=== PATIENT | female | born 1940 | race Two or more races ===

== ENCOUNTER 2016-04-25 09:54 | Inpatient (IN) | payer MEDICARE, MEDICAID ==
[2016-04-24 22:25] VITALS: BP 154/86
[~2016-04-25] VITALS: Ht 154.9 cm; Wt 64.0 kg
[2016-04-25] VITALS (8 sets, daily range): BP systolic 127–166; BP diastolic 50–92
[2016-04-25] MEDS ORDERED: METHAZOLAMIDE50 MG ORAL (10:19)
[2016-04-25] MEDS ORDERED: Morphine Sulfate 4mg/ml Inj IVP ONE (11:00)
[2016-04-25 11:32] LABS: BASOPHILS % (AUTO) 1.1 % (0.0-2.0); EOSINOPHILS % (AUTO) 3.1 % (0.0-3.0); LYMPHOCYTES % (AUTO) 18.6 % (20.0-45.0); MEAN CORPUSCULAR HEMOGLOBIN 25.3 PG (27.0-31.0); MEAN CORPUSCULAR HGB CONC 30.9 G/DL (32.0-36.0); MEAN CORPUSCULAR VOLUME 82 FL (80-99); MONOCYTES % (AUTO) 12.2 % (1.0-10.0); PLATELET COUNT 411 K/UL (150-450); RED BLOOD COUNT 3.71 M/UL (4.20-5.40); WHITE BLOOD COUNT 10.6 K/UL (4.8-10.8)
[2016-04-25 11:34] LABS: APPEARANCE,URINE CLEAR; KETONES,URINE 1+ (NEGATIVE); LEUKOCYTE ESTERASE ,URINE 1+ (NEGATIVE); NITRITE,URINE NEGATIVE (NEGATIVE); PH,URINE 5 (4.5-8.0); PROTEIN,URINE 1+ (NEGATIVE); UROBILINOGEN,URINE 1 MG/DL (0.0-1.0)
[2016-04-25 11:46] LABS: INR 1.1 (0.9-1.1); PROTHROMBIN TIME 11.3 SEC (9.30-11.50)
[2016-04-25 11:47] LABS: BACTERIA,URINE FEW /HPF; HYALINE CASTS, URINE 0-2 /LPF; RBC,URINE 0-2 /HPF (0 - 2); SQUAMOUS EPITHELIAL CELL,UR FEW /LPF (NONE/OCC)
[2016-04-25 11:54] LABS: ALANINE AMINOTRANSFERASE 7 U/L (3-33); ANION GAP 18 (5-15); ASPARTATE AMINO TRANSFERASE 17 U/L (5-40); CALCIUM 8.9 mg/dL (8.6-10.2); CARBON DIOXIDE 23 mEQ/L (20-30); CHLORIDE 101 mEQ/L (98-107); CREATININE 1.2 mg/dL (0.5-0.9); HEMOLYSIS 4; LIPASE 41 U/L (< 60); POTASSIUM 3.3 mEQ/L (3.4-4.9); SODIUM 142 mEQ/L (135-145); TOTAL PROTEIN 6.6 g/dL (6.6-8.7); TROPONIN I < 0.30 ng/mL (<=0.30)
[2016-04-25] MEDS ORDERED: metroNIDAZOLE 500mg 100 ML IVPB ONE (15:30)
--- NOTE | 2016-04-25 15:44 | Emergency Room Report ---
History of Present Illness General Chief Complaint: Abdominal Pain Source: Patient Present Illness HPI Patient presents with weeks of worsening constant LLQ pain. The pain caused her to go to a clinic and she was referred to us. She complains of pain and nausea. Pain 10/10, sharp and aching with some pressure. Slight radiation to back. Unchanged with BMs. No dysuria. No fevers. No vomiting. No blood in stool. She has only taken teas for this. Never with this pain before. No chest pain, palpitations, SOB, dizziness, extremity pain, rashes, headache. H/O diabetes and HTN. Allergies: Coded Allergies: PENICILLINS (Verified Allergy, Unknown, 04/25/16) Patient History Past Medical History: see triage record Social History: Denies: alcohol use, smoking Social History Narrative from home Reviewed Nursing Documentation: PMH: Agreed, PSxH: Agreed Nursing Documentation-PMH Past Medical History: No History, Except For Hx Hypertension: Yes Hx Diabetes: Yes Review of Systems All Other Systems: negative except mentioned in HPI Physical Exam Vital Signs Date Time Temp Pulse Resp B/P Pulse Ox O2 Delivery O2 Flow Rate FiO2 04/25/16 10:05 98.2 83 16 113/71 98 Room Air Sp02 EP Interpretation: reviewed, normal General Appearance: well appearing, no apparent distress, GCS 15 Head: normocephalic Eyes: bilateral eye PERRL, bilateral eye normal inspection ENT: moist mucus membranes Neck: supple Respiratory: lungs clear, normal breath sounds Cardiovascular #1: regular rate, rhythm Cardiovascular #2: 2+ radial (R) Gastrointestinal: normal bowel sounds, non-distended, no rebound, guarding, tenderness - LLQ, overweight Musculoskeletal: back normal, gait/station normal, normal range of motion Neurologic: alert, oriented x3, grossly normal Psychiatric: mood/affect normal Skin: normal inspection, warm/dry Medical Decision Making Diagnostic Impression: Primary Impression: Diverticulitis of intestine with abscess Qualified Codes: K57.20 - Diverticulitis of large intestine with perforation and abscess without bleeding ER Course Patient with LLQ pain with guarding and no rebound. DDx; diverticulitis, mass, pyelonephritis, UTI amongst others. Labs, EKG and CT ordered. IV hydration and analgesia ordered. CT with diverticulitis and abscess. Antibiotics begun. Slight inc WBC, renal insufficiency, low K. Not surgical abdomen. Improved with analgesia and hydration. Admit Med Dr. Ramirez. Discussed with Dr. Stiles. Will consult. Laboratory Tests Test 04/25/16 11:17 White Blood Count 10.6 K/UL (4.8-10.8) Red Blood Count 3.71 M/UL (4.20-5.40) L Hemoglobin 9.4 G/DL (12.0-16.0) L Hematocrit 30.4 % (37.0-47.0) L Mean Corpuscular Volume 82 FL (80-99) Mean Corpuscular Hemoglobin 25.3 PG (27.0-31.0) L Mean Corpuscular Hemoglobin Concent 30.9 G/DL (32.0-36.0) L Red Cell Distribution Width 14.0 % (11.6-14.8) Platelet Count 411 K/UL (150-450) Mean Platelet Volume 5.0 FL (6.5-10.1) L Neutrophils (%) (Auto) 65.0 % (45.0-75.0) Lymphocytes (%) (Auto) 18.6 % (20.0-45.0) L Monocytes (%) (Auto) 12.2 % (1.0-10.0) H Eosinophils (%) (Auto) 3.1 % (0.0-3.0) H Basophils (%) (Auto) 1.1 % (0.0-2.0) Prothrombin Time 11.3 SEC (9.30-11.50) Prothrombin Time INR 1.1 (0.9-1.1) PTT 29 SEC (23-33) Urine Color Yellow Urine Appearance Clear Urine pH 5 (4.5-8.0) Urine Specific [place] 1.020 (1.005-1.035) Urine Protein 1+ (NEGATIVE) H Urine Glucose (UA) Negative (NEGATIVE) Urine Ketones 1+ (NEGATIVE) H Urine Occult Blood Negative (NEGATIVE) Urine Nitrite Negative (NEGATIVE) Urine Bilirubin Negative (NEGATIVE) Urine Urobilinogen 1 MG/DL (0.0-1.0) H Urine Leukocyte Esterase 1+ (NEGATIVE) H Urine RBC 0-2 /HPF (0 - 2) Urine WBC 2-4 /HPF (0 - 2) Urine Squamous Epithelial Cells Few /LPF (NONE/OCC) Urine Bacteria Few /HPF (NONE) Urine Hyaline Casts 0-2 /LPF (NONE) H Sodium Level 142 mEQ/L (135-145) Potassium Level 3.3 mEQ/L (3.4-4.9) L Chloride Level 101 mEQ/L (98-107) Carbon Dioxide Level 23 mEQ/L (20-30) Anion Gap 18 (5-15) H Blood Urea Nitrogen 10 mg/dL (7-23) Creatinine 1.2 mg/dL (0.5-0.9) H Estimate Glomerular Filtration Rate mL/min (>60) Glucose Level 128 mg/dL (74-106) H Calcium Level 8.9 mg/dL (8.6-10.2) Total Bilirubin < 0.2 mg/dL (0.0-1.2) Aspartate Amino Transferase (AST) 17 U/L (5-40) Alanine Aminotransferase (ALT) 7 U/L (3-33) Alkaline Phosphatase 79 U/L (35-104) Troponin I < 0.30 ng/mL (<=0.30) Total Protein 6.6 g/dL (6.6-8.7) Albumin 3.3 g/dL (3.5-5.2) L Globulin 3.3 g/dL Albumin/Globulin Ratio 1.0 (1.0-2.7) Lipase 41 U/L (< 60) EKG Diagnostic Results Rate: normal Rhythm: NSR ST Segments: no acute changes Rhythm Strip Diag. Results EP Interpretation: yes Rhythm: NSR, no PVC's, no ectopy CT/MRI/US Diagnostic Results CT/MRI/US Diagnostic Results : Imaging Test Ordered: abd and pelvis Impression diverticulitis with abscess Last Vital Signs Date Time Temp Pulse Resp B/P Pulse Ox O2 Delivery O2 Flow Rate FiO2 04/25/16 20:41 98.6 65 13 153/60 98 Room Air Status: improved Disposition: ADMITTED INPATIENT Condition: Serious Referrals: NOT CHOSEN IPA/,REFERRING (PCP) Manohar Aparicio M.D. Apr 25, 2016 15:44
[2016-04-25] MEDS ORDERED: Morphine Sulfate 2mg/ml Inj IVP PRN (17:15)
[2016-04-25] MEDS ORDERED: Morphine Sulfate 4mg/ml Inj IVP PRN (17:15)
[2016-04-25] MEDS ORDERED: Milk of Magnesia 30ml Ud ORAL PRN (17:15)
[2016-04-25] MEDS ORDERED: Zolpidem 5mg tab ORAL PRN (17:15)
--- NOTE | 2016-04-25 17:19 | History & Physical ---
History and Physical History & Physicial HP dictated # [id number] TIERRA MATIAS Apr 25, 2016 17:19
[2016-04-25] MEDS: metroNIDAZOLE 500mg tab ORAL SCH (22:16)
[2016-04-25] MEDS: Heparin 5000 units/ml inj SUBQ SCH (22:19)
[2016-04-25] MEDS ORDERED: ATENOLOL25 MG ORAL (23:03)
[2016-04-25] MEDS ORDERED: DIOVAN80 MG ORAL (23:03)
[2016-04-25] MEDS ORDERED: METFORMIN HCL500 M1 ORAL (23:03)
[2016-04-25] MEDS ORDERED: SIMVASTATIN20 MG ORAL (23:03)
[2016-04-26] VITALS (8 sets, daily range): BP systolic 121–139; BP diastolic 51–71
--- NOTE | 2016-04-26 03:09 | History and Physical Report ---
DATE OF ADMISSION: 04/25/2016 CHIEF COMPLAINT: Abdominal pain and some nausea. HISTORY OF PRESENT ILLNESS: This is a 75-year-old female, who came to the emergency room with chief complaint of abdominal pain, which has been going on on and off for the past 2 weeks. Pain is located in the left lower quadrant. The patient was diagnosed with diverticulitis and was admitted for IV antibiotics. PAST MEDICAL HISTORY: Only history of hypertension. MEDICATIONS: The patient usually takes blood pressure medication, but she ran out of it a week ago. SOCIAL HISTORY: No history of smoking or alcohol abuse. The patient lives at home. ALLERGIES: Penicillin. REVIEW OF SYSTEMS: Noncontributory except above. PHYSICAL EXAMINATION: GENERAL: The patient is an elderly female, in no acute distress. VITAL SIGNS: Blood pressure is 127/52, pulse 60, temperature 98.3, and respiratory rate is 16. HEENT: Pale conjunctivae. Anicteric sclerae. NECK: Supple. LUNGS: Clear to auscultation. HEART: S1 and S2 without murmurs or rubs. ABDOMEN: Soft. There is some mild tenderness at left lower quadrant. EXTREMITIES: No cyanosis or edema. LABORATORY FINDINGS: The CBC shows a WBC of 10.6, hematocrit is 30.4, hemoglobin is 9.4, and platelet is 411,000. The chemistry panel shows a serum sodium 142, potassium 3.3, chloride 101, BUN is 10, creatinine 1.2, and blood sugar is 128. ASSESSMENT: This is a 75-year-old female, who was admitted with diagnosis of diverticulitis. PLAN: The patient will be on IV antibiotics. ID consultation will be obtained. The patient will be on pain medications intravenous. She was started on clear liquids for the time being and we will advance the diet as tolerated. Vito Ramirez M.D. DR: ERIC JOB#: [id number] CC:
[2016-04-26] MEDS: metroNIDAZOLE 500mg tab ORAL SCH ×3 (06:20→22:14)
[2016-04-26] MEDS: NovoLOG Insulin Flexpen SUBQ SCH ×4 (06:22→22:08)
[2016-04-26] MEDS: metFORMIN 500mg tab ORAL SCH (08:09)
[2016-04-26] MEDS: Atenolol 25mg tab ORAL SCH (08:26)
[2016-04-26] MEDS: Irbesartan 150mg tablet ORAL SCH (08:26)
[2016-04-26] MEDS: Heparin 5000 units/ml inj SUBQ SCH ×2 (08:31→22:13)
--- NOTE | 2016-04-26 09:26 | Diagnostic Imaging Report ---
Indication: ABD PAIN Technique: CT scan of the abdomen and pelvis was performed from the diaphragms to the symphysis pubis with oral contrast material. No IV contrast was administered per specific request of the ordering physician. 5 mm sections were generated. Axial, coronal, and sagittal images are presented. Dose: Total Dose Length Product - DLP [address] Dose Index - CTDIvol(s) 16.14 mGy. Comparison: None Findings: Lack of IV contrast material does limit evaluation. The liver is unremarkable. The gallbladder is surgically absent. The spleen is normal. The pancreas is unremarkable. Adrenal glands are normal area the kidneys are grossly unremarkable. The aorta is calcified. Retroperitoneum is free of adenopathy. There are numerous diverticula of the colon. Extensive inflammatory changes noted in the region of the distal descending sigmoid colon with wall thickening. There is extraluminal air superior to the sigmoid colon. This collection measures approximately 3 x 1.5 cm. The bladder is unremarkable. The uterus and adnexa are unremarkable. Degenerative changes are present in the spine. Impression: Diverticulosis. Long segment mural thickening with inflammatory change in the distal descending and sigmoid colon consistent with acute diverticulitis. There is a pericolonic collection of gas consistent with abscess. Atherosclerotic change. Degenerative change of the spine. Prior cholecystectomy. This agrees with the reading. The CT scanner at [facility] is accredited by the [employer] and the scans are performed using protocols designed to limit radiation exposure to as low as reasonably achievable to attain images of sufficient resolution adequate for diagnostic evaluation.
--- NOTE | 2016-04-26 15:41 | General Progress Note ---
Assessment/Plan Problem List: (1) Diverticulitis of intestine with abscess ICD Codes: K57.80 - Diverticulitis of intestine, part unspecified, with perforation and abscess without bleeding SNOMED: 815153487, [id number] (2) DM (diabetes mellitus) ICD Codes: E11.9 - Type 2 diabetes mellitus without complications SNOMED: 56955971 Qualifiers: (3) HTN (hypertension) ICD Codes: I10 - Essential (primary) hypertension SNOMED: 87114596 Assessment/Plan Abxs follow labs Discussed with RN Subjective Allergies: Coded Allergies: PENICILLINS (Verified Allergy, Unknown, 04/25/16) Subjective better Objective Last 24 Hour Vital Signs Date Time Temp Pulse Resp B/P Pulse Ox O2 Delivery O2 Flow Rate FiO2 04/26/16 12:48 97.9 61 19 139/62 95 Room Air 04/26/16 08:55 97.5 72 20 121/65 99 Room Air 04/26/16 08:26 124/65 04/26/16 08:26 75 124/65 04/26/16 06:57 97.7 75 22 124/65 Nasal Cannula 04/26/16 04:00 97.7 75 22 124/65 95 Room Air 04/25/16 21:30 65 13 153/60 98 Room Air 04/25/16 20:41 98.6 65 13 153/60 98 Room Air 04/25/16 19:39 60 11 133/50 98 Room Air 04/25/16 18:42 60 13 140/64 100 Room Air 04/25/16 17:49 98.1 66 14 156/53 100 Room Air Intake and Output 04/25/16 04/26/16 19:00 07:00 Intake Total 1200 ml 200 ml Balance 1200 ml 200 ml IV Total 1200 ml 200 ml # Voids 1 3 # Bowel Movements 3 Height (Feet): 5 Height (Inches): 1.00 Weight (Pounds): 141 Cardiovascular: normal rate Respiratory/Chest: lungs clear Abdomen: soft TIERRA MATIAS Apr 26, 2016 15:41
--- NOTE | 2016-04-26 19:48 | Consultation ---
DATE OF CONSULTATION: 04/26/2016 REASON FOR CONSULTATION: Abdominal pain. REQUESTING PHYSICIAN: Vito Ramirez M.D. HISTORY OF PRESENT ILLNESS: This is a 75-year-old, female, who presented to emergency room complaining of abdominal pain for two weeks. She stated the pain was located at the left lower quadrant without radiation. She denied any nausea or vomiting. She has been having diarrhea but no rectal bleeding. She denied any previous history of similar pain. She claims that since she has been in the hospital the pain has resolved. PAST MEDICAL HISTORY: She denies allergies, asthma, cardiac and renal diseases. She has a history of diabetes and hypertension. PAST SURGICAL HISTORY: Include x1. MEDICATIONS: Please see medication reconciliation form. SOCIAL HISTORY: The patient is a 75-year-old, female, who is a . She had one child who has . She denies smoking and drinking. REVIEW OF SYSTEMS: Noncontributory. PHYSICAL EXAMINATION: GENERAL: The patient appeared to be a well-developed, well-nourished, mildly obese, 75-year-old, female, lying on the bed, in no acute distress. HEENT: Head is normocephalic and atraumatic. Eyes, pupils are equal, round, and reactive to light. Mouth is clear. She has a full denture NECK: There is no palpable thyromegaly or adenopathy. CHEST: Clear to auscultation and percussion. HEART: There is no gallop or murmur. S1 and S2 are within normal limits. ABDOMEN: Mildly obese, but soft. Not tender. There is no palpable organomegaly. Bowel sounds are audible. She has a scar of the midline incision below the umbilicus and there is no tenderness in the abdomen. There is no guarding or rebound tenderness. GENITOURINARY: Genitalia is normal. EXTREMITIES: Within normal limits. LABORATORY DATA: CBC has shown a WBC of 10,000 with normal differential. Chemistry is normal. CAT scan of the abdomen, I have reviewed it with the radiologist shows a diverticulitis with small abscess medial to the sigmoid colon but abscess is small and the radiologist felt that it is about 2 to 3 centimeter. ASSESSMENT: Diverticulitis. RECOMMENDATION: At this time, the patient does not have any pain and WBC is almost within normal limits. So continue the intravenous antibiotic and she requires to be on the clear liquid diet and she requires a GI consultation. Christina Stiles M.D. DR: Ángel JOB#: [id number] CC:
[2016-04-27] VITALS (7 sets, daily range): BP systolic 120–145; BP diastolic 57–74
--- NOTE | 2016-04-27 | Consultation ---
DATE OF CONSULTATION: 04/26/2016 INFECTIOUS DISEASE CONSULTATION PRIMARY ATTENDING PHYSICIAN: Vito Ramirez M.D. REASON FOR CONSULT: Diverticulitis with abscess. HISTORY OF PRESENT ILLNESS: The patient is a 75-year-old female admitted yesterday from home complaining of left lower quadrant pain on and off for one or two weeks. No significant other symptoms. A CT scan of the abdomen and pelvis showed diverticulitis and abscess. PAST MEDICAL HISTORY: Significant for hypertension and diabetes mellitus type 2. MEDICATIONS: Medications are atorvastatin, atenolol, , metformin, insulin, heparin, ranitidine, ciprofloxacin, Flagyl, Tylenol, morphine, milk of magnesia, and Ambien. ALLERGIES: The patient is allergic to penicillin. SOCIAL HISTORY: She is generally from [facility]. The patient is Jehovah witness. Denies alcohol, drug abuse and smoking. REVIEW OF SYSTEMS: No fever. No chills. No headache. No sore throat. No coughing. No abnormal pain at the present time. No problem passing urine. PHYSICAL EXAMINATION: GENERAL APPEARANCE: No acute distress. VITAL SIGNS: Temperature 97.5 degrees, pulse 72, and blood pressure 121/65. HEAD AND NECK: [place] conjunctivae. No oral lesions. HEART: Regular. LUNGS: Clear. ABDOMEN: Soft and nontender. EXTREMITIES: No edema. LABORATORY AND DIAGNOSTIC DATA: WBC 10.6, hemoglobin 9.4, hematocrit 30.2, and platelets 411,000. Sodium 142, potassium 3.3, chloride 101, bicarbonate 23, BUN 10, creatinine 1.[address] scan of the abdomen and pelvis showed descending colon and sigmoid colon diverticulitis. There is a fluid colonic collection consistent with abscess. The patient has prior cholecystectomy and have some degenerative changes of the spine. IMPRESSION: 1. Diverticulitis with abscess that is small. 2. Diabetes mellitus. 3. Hypertension. 4. Penicillin allergy. 5. Anemia. RECOMMENDATION: We will continue ciprofloxacin and Flagyl. Case was discussed with the surgeon, who suggested liquid diet. At the end of my exam, I thank, Dr. Ramirez, for involving me in the care of this patient. Julio C Ramirez M.D. DR: JAMES JOB#: [id number] CC: LUCAS
[2016-04-27] MEDS: metroNIDAZOLE 500mg tab ORAL SCH ×3 (05:43→21:17)
[2016-04-27] MEDS: NovoLOG Insulin Flexpen SUBQ SCH ×4 (05:43→21:00)
[2016-04-27] MEDS: Irbesartan 150mg tablet ORAL SCH (08:12)
[2016-04-27] MEDS: metFORMIN 500mg tab ORAL SCH (08:13)
[2016-04-27] MEDS: Atenolol 25mg tab ORAL SCH (08:13)
[2016-04-27] MEDS: Heparin 5000 units/ml inj SUBQ SCH ×2 (08:15→21:18)
--- NOTE | 2016-04-27 10:58 | Infectious Diseases Prog Note ---
Assessment/Plan Assessment/Plan A: Acute diverticulitis with abscess DM type II HPN Anemia Penicillin allergy P: continue Cipro & Flagyl Subjective ROS Limited/Unobtainable: No Constitutional: Reports: no symptoms Respiratory: Reports: no symptoms Gastrointestinal/Abdominal: Reports: diarrhea Genitourinary: Reports: no symptoms Musculoskeletal: Reports: no symptoms Allergies: Coded Allergies: PENICILLINS (Verified Allergy, Unknown, 04/25/16) Objective Vital Signs Last 24 Hour Vital Signs Date Time Temp Pulse Resp B/P Pulse Ox O2 Delivery O2 Flow Rate FiO2 04/27/16 08:13 65 133/64 04/27/16 08:12 133/64 04/27/16 08:00 97.3 65 18 133/64 97 Room Air 04/27/16 04:00 98.2 63 18 129/73 96 Room Air 04/27/16 00:00 98.1 66 18 145/74 97 Room Air 04/26/16 20:33 98.4 62 18 129/71 96 Room Air 04/26/16 20:00 99.1 62 20 134/64 95 Room Air 04/26/16 16:29 99.1 58 19 137/51 98 Room Air 04/26/16 16:00 98.1 58 20 135/60 98 Room Air 04/26/16 12:48 97.9 61 19 139/62 95 Room Air Height (Feet): 5 Height (Inches): 1.00 Weight (Pounds): 141 HEENT: mucous membranes moist Respiratory/Chest: lungs clear Cardiovascular: normal rate Abdomen: soft, non tender Neurologic/Psychiatric: alert, oriented x 3, responsive Microbiology Date/Time Source Procedure Growth Status 04/26/16 04:00 Stool Clostridium difficile Toxin Assay - Final Complete Current Medications Medications (Trade) Dose Ordered Sig/Sahron Route PRN Reason Start Time Stop Time Status Last Admin Dose Admin Acetaminophen (Tylenol) 650 mg Q4H PRN ORAL Mild Pain (Pain Scale 1-3) 04/25/16 17:15 05/25/16 17:14 Atenolol (Tenormin) 25 mg DAILY ORAL 04/26/16 09:00 05/26/16 08:59 04/27/16 08:13 Atorvastatin Calcium (Lipitor) 10 mg BEDTIME ORAL 04/26/16 21:00 05/26/16 20:59 04/26/16 22:10 Ciprofloxacin (Cipro 400mg/ 200ml premix bag) 200 ml @ 200 mls/hr Q12HR IV 04/25/16 22:00 05/02/16 21:59 04/27/16 08:16 Dextrose (Dextrose 50%) STAT PRN IV Hypoglycemia 04/25/16 23:45 05/25/16 23:44 Heparin Sodium (Porcine) (Heparin 5000 units/ml) 5,000 units EVERY 12 HOURS SUBQ 04/25/16 22:00 05/25/16 21:59 04/27/16 08:15 Insulin Aspart (NovoLOG) BEFORE MEALS AND HS SUBQ 04/26/16 06:30 05/26/16 06:29 04/26/16 22:08 Irbesartan (Avapro) 150 mg DAILY ORAL 04/26/16 09:00 05/26/16 08:59 04/27/16 08:12 Magnesium Hydroxide (Mom) 30 ml HSPRN PRN ORAL Constipation 04/25/16 17:15 05/25/16 17:14 Metformin HCl (Glucophage) 500 mg DAILY@0800 ORAL 04/26/16 08:00 05/26/16 07:59 04/27/16 08:13 Metronidazole (Flagyl) 500 mg EVERY 8 HOURS ORAL 04/25/16 22:00 05/02/16 21:59 04/27/16 05:43 Morphine Sulfate (Morphine Sulfate) 2 mg EVERY 3 HOURS PRN IVP Moderate Pain (Pain Scale 4-6) 04/25/16 17:15 05/02/16 17:14 Morphine Sulfate (Morphine Sulfate) 4 mg EVERY 3 HOURS PRN IVP Severe Pain (Pain Scale 7-10) 04/25/16 17:15 05/02/16 17:14 Non-Formulary Medication (Non-Formulary Med) 1 ea DAILY ORAL 04/26/16 09:00 05/26/16 08:59 UNV Ranitidine HCl (Zantac) 150 mg TWICE A DAY ORAL 04/25/16 22:00 05/25/16 21:59 04/27/16 08:13 Zolpidem Tartrate 5 mg 5 mg HSPRN PRN ORAL Insomnia 04/25/16 17:15 05/25/16 17:14 04/26/16 22:09 CHAIM MATIAS Apr 27, 2016 10:58
--- NOTE | 2016-04-27 12:36 | General Progress Note ---
Assessment/Plan Problem List: (1) Diverticulitis of intestine with abscess ICD Codes: K57.80 - Diverticulitis of intestine, part unspecified, with perforation and abscess without bleeding SNOMED: 254082899, [id number] (2) DM (diabetes mellitus) ICD Codes: E11.9 - Type 2 diabetes mellitus without complications SNOMED: 51985363 Qualifiers: (3) HTN (hypertension) ICD Codes: I10 - Essential (primary) hypertension SNOMED: 31549842 Assessment/Plan Abxs liquid diet Subjective Allergies: Coded Allergies: PENICILLINS (Verified Allergy, Unknown, 04/25/16) Subjective better Objective Last 24 Hour Vital Signs Date Time Temp Pulse Resp B/P Pulse Ox O2 Delivery O2 Flow Rate FiO2 04/27/16 12:03 97.8 56 20 125/66 96 Room Air 04/27/16 08:13 65 133/64 04/27/16 08:12 133/64 04/27/16 08:00 97.3 65 18 133/64 97 Room Air 04/27/16 04:00 98.2 63 18 129/73 96 Room Air 04/27/16 00:00 98.1 66 18 145/74 97 Room Air 04/26/16 20:33 98.4 62 18 129/71 96 Room Air 04/26/16 20:00 99.1 62 20 134/64 95 Room Air 04/26/16 16:29 99.1 58 19 137/51 98 Room Air 04/26/16 16:00 98.1 58 20 135/60 98 Room Air 04/26/16 12:48 97.9 61 19 139/62 95 Room Air Intake and Output 04/26/16 04/27/16 19:00 07:00 Intake Total 560 ml 560 ml Balance 560 ml 560 ml Intake Oral 360 ml 560 ml IV Total 200 ml # Voids 1 4 Height (Feet): 5 Height (Inches): 1.00 Weight (Pounds): 141 Cardiovascular: normal rate Respiratory/Chest: lungs clear Abdomen: soft TIERRA MATIAS Apr 27, 2016 12:36
--- NOTE | 2016-04-27 13:14 | General Surgery Progress Note ---
General Surgery-Progress Note Subjective Symptoms: improved, BM Objective Last 24 Hour Vital Signs Date Time Temp Pulse Resp B/P Pulse Ox O2 Delivery O2 Flow Rate FiO2 04/27/16 12:03 97.8 56 20 125/66 96 Room Air 04/27/16 08:13 65 133/64 04/27/16 08:12 133/64 04/27/16 08:00 97.3 65 18 133/64 97 Room Air 04/27/16 04:00 98.2 63 18 129/73 96 Room Air 04/27/16 00:00 98.1 66 18 145/74 97 Room Air 04/26/16 20:33 98.4 62 18 129/71 96 Room Air 04/26/16 20:00 99.1 62 20 134/64 95 Room Air 04/26/16 16:29 99.1 58 19 137/51 98 Room Air 04/26/16 16:00 98.1 58 20 135/60 98 Room Air I&O Intake and Output 04/26/16 04/27/16 19:00 07:00 Intake Total 560 ml 560 ml Balance 560 ml 560 ml Intake Oral 360 ml 560 ml IV Total 200 ml # Voids 1 4 Respiratory: clear Abdomen: soft, flat, non-tender, present bowel sounds Extremities: no tenderness Assessment Additional Comments Diverticulitis Plan Additional Comments continue Antibiotics RALPH COPE Apr 27, 2016 13:14
--- NOTE | 2016-04-27 13:57 | Cardiology Report ---
APPROVED REPORT EKG Measurement Heart [id number] Sinus rhythm with 1st degree AV block Otherwise normal ECG
[2016-04-27] MEDS ORDERED: NS 275ml ONE (16:01)
[2016-04-27] MEDS ORDERED: Tubing IV Secondary IV ONE (16:01)
[2016-04-28 04:00] VITALS: BP 130/61
[2016-04-28] MEDS: metroNIDAZOLE 500mg tab ORAL SCH ×3 (05:12→21:50)
[2016-04-28] MEDS: NovoLOG Insulin Flexpen SUBQ SCH ×4 (06:30→21:00)
[2016-04-28 07:58] LABS: BASOPHILS % (AUTO) 0.6 % (0.0-2.0); EOSINOPHILS % (AUTO) 6.1 % (0.0-3.0); LYMPHOCYTES % (AUTO) 47.7 % (20.0-45.0); MEAN CORPUSCULAR HEMOGLOBIN 25.2 PG (27.0-31.0); MEAN CORPUSCULAR HGB CONC 30.8 G/DL (32.0-36.0); MEAN CORPUSCULAR VOLUME 82 FL (80-99); MEAN PLATELET VOLUME 4.8 FL (6.5-10.1); MONOCYTES % (AUTO) 9.2 % (1.0-10.0); NEUTROPHILS % (AUTO) 36.4 % (45.0-75.0); PLATELET COUNT 360 K/UL (150-450); RED BLOOD COUNT 3.62 M/UL (4.20-5.40); RED CELL DISTRIBUTION WIDTH 14.2 % (11.6-14.8); WHITE BLOOD COUNT 6.3 K/UL (4.8-10.8)
[2016-04-28 08:00] VITALS: BP 120/62
[2016-04-28 08:05] LABS: ANION GAP 15 (5-15); CALCIUM 8.7 mg/dL (8.6-10.2); CARBON DIOXIDE 25 mEQ/L (20-30); CHLORIDE 104 mEQ/L (98-107); CREATININE 0.9 mg/dL (0.5-0.9); HEMOLYSIS 2; POTASSIUM 3.1 mEQ/L (3.4-4.9); SODIUM 144 mEQ/L (135-145)
[2016-04-28] MEDS: metFORMIN 500mg tab ORAL SCH (08:18)
[2016-04-28] MEDS: Atenolol 25mg tab ORAL SCH (08:20)
[2016-04-28] MEDS: Irbesartan 150mg tablet ORAL SCH (08:24)
[2016-04-28] MEDS: Heparin 5000 units/ml inj SUBQ SCH ×2 (08:25→21:50)
--- NOTE | 2016-04-28 08:54 | General Progress Note ---
Assessment/Plan Problem List: (1) Diverticulitis of intestine with abscess ICD Codes: K57.80 - Diverticulitis of intestine, part unspecified, with perforation and abscess without bleeding SNOMED: 394129855, 27794296 (2) DM (diabetes mellitus) ICD Codes: E11.9 - Type 2 diabetes mellitus without complications SNOMED: 71730173 Qualifiers: (3) HTN (hypertension) ICD Codes: I10 - Essential (primary) hypertension SNOMED: 04912046 Assessment/Plan Abxs liquid diet Subjective Allergies: Coded Allergies: PENICILLINS (Verified Allergy, Unknown, 04/25/16) Subjective better Objective Last 24 Hour Vital Signs Date Time Temp Pulse Resp B/P Pulse Ox O2 Delivery O2 Flow Rate FiO2 04/28/16 08:24 120/62 04/28/16 08:00 98.2 50 12 120/62 95 Room Air 04/28/16 04:00 98.1 52 18 130/61 95 Room Air 04/27/16 23:46 98.3 53 18 123/63 96 Room Air 04/27/16 20:00 98.2 51 20 120/61 97 Room Air 04/27/16 16:00 98.4 52 18 132/57 98 Room Air 04/27/16 12:03 97.8 56 20 125/66 96 Room Air Intake and Output 04/27/16 04/28/16 19:00 07:00 Intake Total 440 ml 200 ml Balance 440 ml 200 ml Intake Oral 240 ml 200 ml IV Total 200 ml # Voids 1 4 # Bowel Movements 1 Laboratory Tests 04/28/16 05:15: White Blood Count 6.3, Red Blood Count 3.62L, Hemoglobin 9.1L, Hematocrit 29.7L , Mean Corpuscular Volume 82, Mean Corpuscular Hemoglobin 25.2L, Mean Corpuscular Hemoglobin Concent 30.8L, Red Cell Distribution Width 14.2, Platelet Count 360, Mean Platelet Volume 4.8L, Neutrophils (%) (Auto) 36.4L, Lymphocytes (%) (Auto) 47.7H, Monocytes (%) (Auto) 9.2, Eosinophils (%) (Auto) 6.1H, Basophils (%) (Auto) 0.6, Sodium Level 144, Potassium Level 3.1L, Chloride Level 104, Carbon Dioxide Level 25, Anion Gap 15, Blood Urea Nitrogen 3L, Creatinine 0.9, Estimat Glomerular Filtration Rate , Glucose Level 92, Calcium Level 8.7 Height (Feet): 5 Height (Inches): 1.00 Weight (Pounds): 141 Cardiovascular: normal rate Respiratory/Chest: lungs clear Abdomen: non tender, soft CATINATIERRA ORTEGA Apr 28, 2016 08:54
--- NOTE | 2016-04-28 11:09 | Infectious Diseases Prog Note ---
Assessment/Plan Assessment/Plan A: Acute diverticulitis with abscess DM type II HPN Anemia Penicillin allergy P: continue Cipro & Flagyl X [address] scan @ end of treatment Subjective ROS Limited/Unobtainable: No Constitutional: Reports: no symptoms Respiratory: Reports: no symptoms Cardiovascular: Reports: no symptoms Genitourinary: Reports: no symptoms Allergies: Coded Allergies: PENICILLINS (Verified Allergy, Unknown, 04/25/16) Objective Vital Signs Last 24 Hour Vital Signs Date Time Temp Pulse Resp B/P Pulse Ox O2 Delivery O2 Flow Rate FiO2 04/28/16 08:24 120/62 04/28/16 08:00 98.2 50 12 120/62 95 Room Air 04/28/16 04:00 98.1 52 18 130/61 95 Room Air 04/27/16 23:46 98.3 53 18 123/63 96 Room Air 04/27/16 20:00 98.2 51 20 120/61 97 Room Air 04/27/16 16:00 98.4 52 18 132/57 98 Room Air 04/27/16 12:03 97.8 56 20 125/66 96 Room Air Height (Feet): 5 Height (Inches): 1.00 Weight (Pounds): 141 General Appearance: no acute distress HEENT: mucous membranes moist Respiratory/Chest: lungs clear Cardiovascular: normal rate Abdomen: soft, non tender Extremities: no edema Neurologic/Psychiatric: alert, oriented x 3, responsive Microbiology Date/Time Source Procedure Growth Status 04/26/16 04:00 Stool Clostridium difficile Toxin Assay - Final Complete Laboratory Tests Test 04/28/16 05:15 White Blood Count 6.3 K/UL (4.8-10.8) Red Blood Count 3.62 M/UL (4.20-5.40) L Hemoglobin 9.1 G/DL (12.0-16.0) L Hematocrit 29.7 % (37.0-47.0) L Mean Corpuscular Volume 82 FL (80-99) Mean Corpuscular Hemoglobin 25.2 PG (27.0-31.0) L Mean Corpuscular Hemoglobin Concent 30.8 G/DL (32.0-36.0) L Red Cell Distribution Width 14.2 % (11.6-14.8) Platelet Count 360 K/UL (150-450) Mean Platelet Volume 4.8 FL (6.5-10.1) L Neutrophils (%) (Auto) 36.4 % (45.0-75.0) L Lymphocytes (%) (Auto) 47.7 % (20.0-45.0) H Monocytes (%) (Auto) 9.2 % (1.0-10.0) Eosinophils (%) (Auto) 6.1 % (0.0-3.0) H Basophils (%) (Auto) 0.6 % (0.0-2.0) Sodium Level 144 mEQ/L (135-145) Potassium Level 3.1 mEQ/L (3.4-4.9) L Chloride Level 104 mEQ/L (98-107) Carbon Dioxide Level 25 mEQ/L (20-30) Anion Gap 15 (5-15) Blood Urea Nitrogen 3 mg/dL (7-23) L Creatinine 0.9 mg/dL (0.5-0.9) Estimat Glomerular Filtration Rate mL/min (>60) Glucose Level 92 mg/dL (74-106) Calcium Level 8.7 mg/dL (8.6-10.2) Current Medications Medications (Trade) Dose Ordered Sig/Sharon Route PRN Reason Start Time Stop Time Status Last Admin Dose Admin Acetaminophen (Tylenol) 650 mg Q4H PRN ORAL Mild Pain (Pain Scale 1-3) 04/25/16 17:15 05/25/16 17:14 Atenolol (Tenormin) 25 mg DAILY ORAL 04/26/16 09:00 05/26/16 08:59 04/27/16 08:13 Atorvastatin Calcium (Lipitor) 10 mg BEDTIME ORAL 04/26/16 21:00 05/26/16 20:59 04/27/16 21:18 Ciprofloxacin (Cipro 400mg/ 200ml premix bag) 200 ml @ 200 mls/hr Q12HR IV 04/25/16 22:00 05/02/16 21:59 04/28/16 08:18 Dextrose (Dextrose 50%) STAT PRN IV Hypoglycemia 04/25/16 23:45 05/25/16 23:44 Heparin Sodium (Porcine) (Heparin 5000 units/ml) 5,000 units EVERY 12 HOURS SUBQ 04/25/16 22:00 05/25/16 21:59 04/28/16 08:25 Insulin Aspart (NovoLOG) BEFORE MEALS AND HS SUBQ 04/26/16 06:30 05/26/16 06:29 04/27/16 17:37 Irbesartan (Avapro) 150 mg DAILY ORAL 04/26/16 09:00 05/26/16 08:59 04/28/16 08:24 Magnesium Hydroxide (Mom) 30 ml HSPRN PRN ORAL Constipation 04/25/16 17:15 05/25/16 17:14 Metformin HCl (Glucophage) 500 mg DAILY@0800 ORAL 04/26/16 08:00 05/26/16 07:59 04/28/16 08:18 Metronidazole (Flagyl) 500 mg EVERY 8 HOURS ORAL 04/25/16 22:00 05/02/16 21:59 04/28/16 05:12 Morphine Sulfate (Morphine Sulfate) 2 mg EVERY 3 HOURS PRN IVP Moderate Pain (Pain Scale 4-6) 04/25/16 17:15 05/02/16 17:14 Morphine Sulfate (Morphine Sulfate) 4 mg EVERY 3 HOURS PRN IVP Severe Pain (Pain Scale 7-10) 04/25/16 17:15 05/02/16 17:14 Ranitidine HCl (Zantac) 150 mg TWICE A DAY ORAL 04/25/16 22:00 05/25/16 21:59 04/28/16 08:18 Zolpidem Tartrate 5 mg 5 mg HSPRN PRN ORAL Insomnia 04/25/16 17:15 05/25/16 17:14 04/26/16 22:09 CHAIM MATIAS Apr 28, 2016 11:09
[2016-04-28 12:00] VITALS: BP 126/75
--- NOTE | 2016-04-28 14:05 | General Surgery Progress Note ---
General Surgery-Progress Note Subjective Symptoms: improved, BM Objective Last 24 Hour Vital Signs Date Time Temp Pulse Resp B/P Pulse Ox O2 Delivery O2 Flow Rate FiO2 04/28/16 12:00 97.6 51 14 126/75 95 Room Air 04/28/16 08:24 120/62 04/28/16 08:00 98.2 50 12 120/62 95 Room Air 04/28/16 04:00 98.1 52 18 130/61 95 Room Air 04/27/16 23:46 98.3 53 18 123/63 96 Room Air 04/27/16 20:00 98.2 51 20 120/61 97 Room Air 04/27/16 16:00 98.4 52 18 132/57 98 Room Air I&O Intake and Output 04/27/16 04/28/16 19:00 07:00 Intake Total 440 ml 200 ml Balance 440 ml 200 ml Intake Oral 240 ml 200 ml IV Total 200 ml # Voids 1 4 # Bowel Movements 1 Respiratory: clear Abdomen: soft, flat, non-tender, present bowel sounds Extremities: no tenderness Laboratory Tests Test 04/28/16 05:15 White Blood Count 6.3 K/UL (4.8-10.8) Red Blood Count 3.62 M/UL (4.20-5.40) L Hemoglobin 9.1 G/DL (12.0-16.0) L Hematocrit 29.7 % (37.0-47.0) L Mean Corpuscular Volume 82 FL (80-99) Mean Corpuscular Hemoglobin 25.2 PG (27.0-31.0) L Mean Corpuscular Hemoglobin Concent 30.8 G/DL (32.0-36.0) L Red Cell Distribution Width 14.2 % (11.6-14.8) Platelet Count 360 K/UL (150-450) Mean Platelet Volume 4.8 FL (6.5-10.1) L Neutrophils (%) (Auto) 36.4 % (45.0-75.0) L Lymphocytes (%) (Auto) 47.7 % (20.0-45.0) H Monocytes (%) (Auto) 9.2 % (1.0-10.0) Eosinophils (%) (Auto) 6.1 % (0.0-3.0) H Basophils (%) (Auto) 0.6 % (0.0-2.0) Sodium Level 144 mEQ/L (135-145) Potassium Level 3.1 mEQ/L (3.4-4.9) L Chloride Level 104 mEQ/L (98-107) Carbon Dioxide Level 25 mEQ/L (20-30) Anion Gap 15 (5-15) Blood Urea Nitrogen 3 mg/dL (7-23) L Creatinine 0.9 mg/dL (0.5-0.9) Estimat Glomerular Filtration Rate mL/min (>60) Glucose Level 92 mg/dL (74-106) Calcium Level 8.7 mg/dL (8.6-10.2) Assessment Additional Comments diverticulitis Plan Additional Comments per PCP RALPH COPE Apr 28, 2016 14:05
[2016-04-28 16:00] VITALS: BP 141/66
[2016-04-28 20:00] VITALS: BP 172/70
[2016-04-29] VITALS: BP 146/71
[2016-04-29 04:00] VITALS: BP 140/66
[2016-04-29] MEDS: metroNIDAZOLE 500mg tab ORAL SCH ×2 (06:21→12:54)
[2016-04-29] MEDS: NovoLOG Insulin Flexpen SUBQ SCH ×3 (06:21→16:30)
[2016-04-29 07:33] LABS: BASOPHILS % (AUTO) 1.3 % (0.0-2.0); EOSINOPHILS % (AUTO) 6.7 % (0.0-3.0); LYMPHOCYTES % (AUTO) 36.9 % (20.0-45.0); MEAN CORPUSCULAR HEMOGLOBIN 25.3 PG (27.0-31.0); MEAN CORPUSCULAR HGB CONC 30.8 G/DL (32.0-36.0); MEAN CORPUSCULAR VOLUME 82 FL (80-99); MEAN PLATELET VOLUME 4.8 FL (6.5-10.1); MONOCYTES % (AUTO) 14.6 % (1.0-10.0); NEUTROPHILS % (AUTO) 40.4 % (45.0-75.0); PLATELET COUNT 347 K/UL (150-450); RED BLOOD COUNT 3.75 M/UL (4.20-5.40); RED CELL DISTRIBUTION WIDTH 14.8 % (11.6-14.8); WHITE BLOOD COUNT 5.7 K/UL (4.8-10.8)
[2016-04-29 08:00] VITALS: BP 140/59
[2016-04-29] MEDS: metFORMIN 500mg tab ORAL SCH (09:36)
[2016-04-29] MEDS: Irbesartan 150mg tablet ORAL SCH (09:36)
[2016-04-29] MEDS: Atenolol 25mg tab ORAL SCH (09:36)
[2016-04-29] MEDS: Heparin 5000 units/ml inj SUBQ SCH (09:40)
[2016-04-29 12:00] VITALS: BP 136/66
--- NOTE | 2016-04-29 13:00 | General Surgery Progress Note ---
General Surgery-Progress Note Subjective Symptoms: improved, BM Objective Last 24 Hour Vital Signs Date Time Temp Pulse Resp B/P Pulse Ox O2 Delivery O2 Flow Rate FiO2 04/29/16 12:00 97.0 51 16 136/66 97 Room Air 04/29/16 09:36 140/59 04/29/16 09:36 72 140/59 04/29/16 08:00 97.6 72 15 140/59 98 Room Air 04/29/16 04:00 98.0 56 18 140/66 96 Room Air 04/29/16 00:00 98.1 58 18 146/71 97 Room Air 04/28/16 20:00 98.1 59 20 172/70 97 Room Air 04/28/16 16:00 97.7 56 20 141/66 96 Room Air I&O Intake and Output 04/28/16 04/29/16 19:00 07:00 Intake Total 960 ml 720 ml Balance 960 ml 720 ml Intake Oral 960 ml 520 ml IV Total 200 ml # Voids 8 4 # Bowel Movements 2 3 Respiratory: clear Abdomen: soft, flat, non-tender, present bowel sounds Extremities: no tenderness Laboratory Tests Test 04/29/16 06:40 White Blood Count 5.7 K/UL (4.8-10.8) Red Blood Count 3.75 M/UL (4.20-5.40) L Hemoglobin 9.5 G/DL (12.0-16.0) L Hematocrit 30.8 % (37.0-47.0) L Mean Corpuscular Volume 82 FL (80-99) Mean Corpuscular Hemoglobin 25.3 PG (27.0-31.0) L Mean Corpuscular Hemoglobin Concent 30.8 G/DL (32.0-36.0) L Red Cell Distribution Width 14.8 % (11.6-14.8) Platelet Count 347 K/UL (150-450) Mean Platelet Volume 4.8 FL (6.5-10.1) L Neutrophils (%) (Auto) 40.4 % (45.0-75.0) L Lymphocytes (%) (Auto) 36.9 % (20.0-45.0) Monocytes (%) (Auto) 14.6 % (1.0-10.0) H Eosinophils (%) (Auto) 6.7 % (0.0-3.0) H Basophils (%) (Auto) 1.3 % (0.0-2.0) Assessment Additional Comments Diverticulitis Plan Additional Comments can be discharged RALPH COPE Apr 29, 2016 13:00
--- NOTE | 2016-04-29 15:31 | Consultation ---
Consult Note Assessment/Plan Dc dictated # [id number] TIERRA MATIAS Apr 29, 2016 15:31
[2016-04-29] MEDS ORDERED: Ciprofloxacin 500mg tab ORAL SCH (21:00)
--- NOTE | 2016-04-30 01:48 | Discharge Summary ---
DATE OF ADMISSION: 04/25/2016 DATE OF DISCHARGE: 04/29/2016 CHIEF COMPLAINT: Abdominal pain and nausea. HISTORY OF PRESENT ILLNESS: This is a 75-year-old female, who is admitted with above symptoms. The patient was diagnosed with acute diverticulitis and she did have a CT of the abdomen, which showed diverticulitis, in addition long segment mural thickening with inflammatory change in the distal descending and sigmoid colon, consistent with acute diverticulitis. There was also pericolonic collection of gas consistent with abscess. HOSPITAL COURSE: The patient was seen and was started on IV antibiotics and was seen by Dr. Stiles in surgical consultation and also Dr. Julio C Ramirez for Infectious Diseases. The patient's condition improved rapidly and finally she was started on regular diet and was sent home. She was supposed to take another 10 days of Cipro and Flagyl after the discharge. DISCHARGE DIAGNOSES: 1. Acute diverticulitis as described. 2. History of diabetes. 3. History of hypertension. DISCHARGE MEDICATIONS: Please refer to discharge medication list. Vito Ramirez M.D. DR: EPHRAIM JOB#: [id number] CC:
== END 2016-04-29 18:00 | disposition home or self-care (01) | DRG 392 ==
LOC: EMR 11:18 → 4W 15:36 → EDBEDREQ 21:14 → 4W 22:30
DX: K57.20 Diverticulitis of large intestine with perforation and abscess without bleeding (principal); E11.9 Type 2 diabetes mellitus without complications; D64.9 Anemia, unspecified; I10 Essential (primary) hypertension; Z88.0 Allergy status to penicillin
CPT/HCPCS: 36415; 74177; 80048; 80053; 81003; 82962; 83690; 84484; 85025; 85610; 85730; 87493; 93005; J1815; J2405; J8499

== ENCOUNTER 2016-06-29 10:46 | Emergency (ER) | payer MEDICARE, MEDICAID ==
[~2016-06-29] VITALS: Ht 167.6 cm; Wt 68.0 kg
[~2016-06-29 10:46] MED LIST: ATENOLOL25 MG ORAL; DIOVAN80 MG ORAL; METFORMIN HCL500 M1 ORAL; METHAZOLAMIDE50 MG ORAL; SIMVASTATIN20 MG ORAL
--- NOTE | 2016-06-29 11:24 | Emergency Room Report ---
History of Present Illness General Chief Complaint: Abdominal Pain Source: Patient Present Illness HPI Patient just complains of diarrhea and left lower abdominal pain Review of records shows the patient was here in mid April with diverticulitis and what appeared to be a small abscess Patient had IV intervention at that time she reports of diarrhea that started last night Pain 3/10 left lower abdomen as well Denies any chest pain or shortness of breath as any vomiting denies any fevers denies any dysuria frequency Allergies: Coded Allergies: PENICILLINS (Verified Allergy, Unknown, 04/25/16) Patient History Past Medical History: see triage record Pertinent Family History: none Reviewed Nursing Documentation: PMH: Agreed, PSxH: Agreed Nursing Documentation-PMH Past Medical History: No History, Except For Hx Cardiac Problems: Yes Hx Hypertension: Yes Hx Diabetes: Yes Hx Gastrointestinal Problems: No Hx Neurological Problems: No Review of Systems All Other Systems: negative except mentioned in HPI Physical Exam Vital Signs Date Time Temp Pulse Resp B/P Pulse Ox O2 Delivery O2 Flow Rate FiO2 06/29/16 10:54 98.1 71 18 115/67 98 Room Air Sp02 EP Interpretation: reviewed, normal General Appearance: well appearing, no apparent distress Head: normocephalic, atraumatic Eyes: bilateral eye EOMI, bilateral eye PERRL ENT: hearing grossly normal, normal pharynx, TMs + canals normal, uvula midline Neck: full range of motion, supple, no meningismus, no bony tend Respiratory: lungs clear, normal breath sounds, no rhonchi, no respiratory distress, no retraction, no accessory muscle use Cardiovascular #1: normal peripheral pulses, regular rate, rhythm, no edema, no gallop, no JVD, no murmur Gastrointestinal: normal bowel sounds, non tender, soft, no mass, no organomegaly, non-distended, no guarding, no hernia, no pulsatile mass, no rebound Genitourinary: no CVA tenderness Musculoskeletal: normal inspection Neurologic: oriented x3, responsive, log yard manager III-XII nml as tested, motor strength/ tone normal, sensory intact Psychiatric: mood/affect normal Skin: normal color, no rash, warm/dry, palpation normal Lymphatic: normal inspection, no adenopathy Medical Decision Making Diagnostic Impression: Primary Impression: AMA Additional Impressions: Diverticulitis Diverticulitis of intestine with abscess ER Course With the history exam and presentation, multiple differentials considered, including but not limited to appendicitis, gastritis, cholecystitis, diverticulitis Patient's CAT scan again reveals evidence of diverticulitis In discussion with radiology the same intramural abscesses visible Patient is a require admission with further antibiotics On reevaluation however the patient states that she has no pain, and cannot be admitted to the hospital She reports that her dogs at her home I did speak with her with a marketing and communications officer, this diagnosis is extremely dangerous and can lead to worsening symptoms such as perforation and possible Patient requires admission At this time remains awake alert and continues to refuse admission I spoke to the patient's primary physician as well however the patient refusing admission I did also try to contact other family and the patient cannot provide any further contact information Labs Test 06/29/16 11:10 06/29/16 11:47 Urine Color Pale yellow Urine Appearance Clear Urine pH 6 (4.5-8.0) Urine Specific [place] 1.010 (1.005-1.035) Urine Protein Negative (NEGATIVE) Urine Glucose (UA) Negative (NEGATIVE) Urine Ketones Negative (NEGATIVE) Urine Occult Blood Negative (NEGATIVE) Urine Nitrite Negative (NEGATIVE) Urine Bilirubin Negative (NEGATIVE) Urine Urobilinogen Normal MG/DL (0.0-1.0) Urine Leukocyte Esterase Negative (NEGATIVE) White Blood Count 9.5 K/UL (4.8-10.8) Red Blood Count 4.16 M/UL (4.20-5.40) Hemoglobin 11.2 G/DL (12.0-16.0) Hematocrit 34.9 % (37.0-47.0) Mean Corpuscular Volume 84 FL (80-99) Mean Corpuscular Hemoglobin 27.0 PG (27.0-31.0) Mean Corpuscular Hemoglobin Concent 32.2 G/DL (32.0-36.0) Red Cell Distribution Width 16.1 % (11.6-14.8) Platelet Count 341 K/UL (150-450) Mean Platelet Volume 5.3 FL (6.5-10.1) Neutrophils (%) (Auto) 57.6 % (45.0-75.0) Lymphocytes (%) (Auto) 27.0 % (20.0-45.0) Monocytes (%) (Auto) 10.1 % (1.0-10.0) Eosinophils (%) (Auto) 4.4 % (0.0-3.0) Basophils (%) (Auto) 0.9 % (0.0-2.0) Sodium Level 139 mEQ/L (135-145) Potassium Level 4.1 mEQ/L (3.4-4.9) Chloride Level 99 mEQ/L (98-107) Carbon Dioxide Level 22 mEQ/L (20-30) Anion Gap 18 (5-15) Blood Urea Nitrogen 11 mg/dL (7-23) Creatinine 1.1 mg/dL (0.5-0.9) Estimat Glomerular Filtration Rate mL/min (>60) Glucose Level 97 mg/dL (74-106) Calcium Level 9.6 mg/dL (8.6-10.2) Total Bilirubin < 0.2 mg/dL (0.0-1.2) Aspartate Amino Transf (AST/SGOT) 11 U/L (5-40) Alanine Aminotransferase (ALT/SGPT) 5 U/L (3-33) Alkaline Phosphatase 70 U/L (35-104) Total Protein 7.6 g/dL (6.6-8.7) Albumin 3.7 g/dL (3.5-5.2) Globulin 3.9 g/dL Albumin/Globulin Ratio 0.9 (1.0-2.7) Lipase 51 U/L (< 60) Rhythm Strip Diag. Results EP Interpretation: yes Rate: 67 Rhythm: NSR, no PVC's, no ectopy CT/MRI/US Diagnostic Results CT/MRI/US Diagnostic Results : Impression CT abdomen pelvisImpression: Fairly long segment of sigmoid wall thickening and inflammation consistent with acute diverticulitis. Similar findings seen previously. Probable mural based anterior wall abscess involving the distal sigmoid colon region. Findings were discussed with Dr. Sinha via telephone. Status post cholecystectomy. Atherosclerotic vascular disease Spondylosis Last Vital Signs Date Time Temp Pulse Resp B/P Pulse Ox O2 Delivery O2 Flow Rate FiO2 06/29/16 10:54 98.1 71 18 115/67 98 Room Air Status: improved Disposition: AGAINST MEDICAL ADVICE Condition: Critical EKTA SINHA D.O. June 29, 2016 11:24
[2016-06-29 11:45] LABS: APPEARANCE,URINE CLEAR; KETONES,URINE NEGATIVE (NEGATIVE); LEUKOCYTE ESTERASE ,URINE NEGATIVE (NEGATIVE); NITRITE,URINE NEGATIVE (NEGATIVE); PH,URINE 6 (4.5-8.0); PROTEIN,URINE NEGATIVE (NEGATIVE); UROBILINOGEN,URINE NORMAL MG/DL (0.0-1.0)
[2016-06-29 12:03] LABS: BASOPHILS % (AUTO) 0.9 % (0.0-2.0); EOSINOPHILS % (AUTO) 4.4 % (0.0-3.0); MEAN CORPUSCULAR HGB CONC 32.2 G/DL (32.0-36.0); MEAN CORPUSCULAR VOLUME 84 FL (80-99); MEAN PLATELET VOLUME 5.3 FL (6.5-10.1); MONOCYTES % (AUTO) 10.1 % (1.0-10.0); NEUTROPHILS % (AUTO) 57.6 % (45.0-75.0); PLATELET COUNT 341 K/UL (150-450); RED BLOOD COUNT 4.16 M/UL (4.20-5.40); RED CELL DISTRIBUTION WIDTH 16.1 % (11.6-14.8); WHITE BLOOD COUNT 9.5 K/UL (4.8-10.8)
[2016-06-29] MEDS ORDERED: UNOBMED (12:08)
[2016-06-29 12:12] LABS: ALANINE AMINOTRANSFERASE 5 U/L (3-33); ALBUMIN/GLOBULIN RATIO 0.9 (1.0-2.7); ANION GAP 18 (5-15); ASPARTATE AMINO TRANSFERASE 11 U/L (5-40); CALCIUM 9.6 mg/dL (8.6-10.2); CARBON DIOXIDE 22 mEQ/L (20-30); CHLORIDE 99 mEQ/L (98-107); CREATININE 1.1 mg/dL (0.5-0.9); HEMOLYSIS 4; LIPASE 51 U/L (< 60); POTASSIUM 4.1 mEQ/L (3.4-4.9); SODIUM 139 mEQ/L (135-145); TOTAL PROTEIN 7.6 g/dL (6.6-8.7)
[2016-06-29 14:34] VITALS: BP 115/67
--- NOTE | 2016-06-29 16:19 | Diagnostic Imaging Report ---
Indication: Abdominal pain. History of diverticulitis Technique: Continuous helical transaxial imaging of the abdomen and pelvis was obtained from the lung bases to the pubic symphysis during intravenous contrast administration. Coronal 2-D reformats were also obtained. Study obtained in a Siemens sensation [address] Total Dose length Product (DLP): [address] Dose Index Volume (CTDIvol): 16 mGy Comparison: 04/25/16 Findings: Similar findings are noted on the current study that were seen on the previous occasion on 04/25/16. There is a fairly marked edema of the wall of the sigmoid colon associated with extensive diverticulosis and surrounding soft tissue stranding of the perisigmoid fat. Findings are consistent with acute diverticulitis. There is a questionable mural-based fluid and air-containing abscess involving the distal part of the anterior wall of the sigmoid colon (for example image 58 of series 2). This could be intraluminal air and fluid. Finding is questionable. There is no perforation. There is no evidence of perisigmoid abscess. Cholecystectomy again noted. Lung bases appear clear. The liver and spleen, pancreas, adrenal glands and kidneys are unremarkable. Arterial vascular calcifications are noted. Atrophic uterus is present. Urinary bladder is nondistended. There is narrowing of intervertebral discs and accompanying endplate osteophyte formation. Hypertrophied facet joints also demonstrated.. Impression: Fairly long segment of sigmoid wall thickening and inflammation consistent with acute diverticulitis. Similar findings seen previously. Probable mural based anterior wall abscess involving the distal sigmoid colon region. Findings were discussed with Dr. Valles via telephone. Status post cholecystectomy. Atherosclerotic vascular disease Spondylosis The CT scanner at [facility] is accredited by the [employer] and the scans are performed using dose optimization techniques as appropriate to a performed exam including Automatic Exposure control.
== END 2016-06-29 14:37 | disposition left against medical advice (07) ==
LOC: EMR 11:45 → CANBEDREQ 14:23 → EMR 14:37
DX: K57.20 Diverticulitis of large intestine with perforation and abscess without bleeding (principal); Z90.49 Acquired absence of other specified parts of digestive tract; Z88.0 Allergy status to penicillin; I10 Essential (primary) hypertension; E11.9 Type 2 diabetes mellitus without complications
CPT/HCPCS: 36415; 74177; 80053; 81003; 83690; 85025; 99284; Q9967

== ENCOUNTER 2016-11-20 10:39 | Inpatient (IN) | payer MEDICARE, MEDICAID ==
[~2016-11-20] VITALS: Ht 157.5 cm; Wt 63.5 kg
[~2016-11-20 10:39] MED LIST changes: +UNOBMED
[2016-11-20] MEDS ORDERED: Sodium Chloride 500ML 500 ML IV ONE (11:18)
--- NOTE | 2016-11-20 11:20 | Emergency Room Report ---
History of Present Illness General Chief Complaint: Abdominal Pain Source: Patient Present Illness HPI Patient presents with complaints of left lower abdominal pain Patient reports the pain has been going on for the last 7 days rates the pain as a 3/10 however friends and family that are with her report that the patient has increased pain in that she's not being honest Denies any vomiting patient reports of diarrhea however pain is localized to the left lower abdomen denies any dysuria frequency denies any fevers or chills denies any change of position Allergies: Coded Allergies: PENICILLINS (Verified Allergy, Unknown, 04/25/16) Patient History Past Medical History: see triage record Pertinent Family History: none Reviewed Nursing Documentation: PMH: Agreed, PSxH: Agreed Nursing Documentation-PMH Past Medical History: No History, Except For Hx Cardiac Problems: Yes Hx Hypertension: Yes Hx Diabetes: Yes Hx Gastrointestinal Problems: No Hx Neurological Problems: No Review of Systems All Other Systems: negative except mentioned in HPI Physical Exam Vital Signs Date Time Temp Pulse Resp B/P (MAP) Pulse Ox O2 Delivery O2 Flow Rate FiO2 11/20/16 10:53 98.1 79 16 119/71 98 Room Air Sp02 EP Interpretation: reviewed, normal General Appearance: well appearing, no apparent distress Head: normocephalic, atraumatic Eyes: bilateral eye PERRL, bilateral eye EOMI ENT: hearing grossly normal, normal pharynx, TMs + canals normal, uvula midline Neck: full range of motion, supple, no meningismus, no bony tend Respiratory: lungs clear, normal breath sounds, no rhonchi, no respiratory distress, no retraction, no accessory muscle use Cardiovascular #1: normal peripheral pulses, regular rate, rhythm, no edema, no gallop, no JVD, no murmur Gastrointestinal: normal bowel sounds, soft, no mass, no organomegaly, non- distended, no guarding, no hernia, no pulsatile mass, no rebound, tenderness - Discomfort palpated to the left lower abdomen Genitourinary: no CVA tenderness Musculoskeletal: normal inspection Neurologic: oriented x3, responsive, group home manager III-XII nml as tested, motor strength/ tone normal, sensory intact Psychiatric: mood/affect normal Skin: normal color, no rash, warm/dry, palpation normal Lymphatic: normal inspection, no adenopathy Medical Decision Making Diagnostic Impression: Primary Impression: Diverticulitis ER Course With the history exam and presentation, multiple differentials considered, including but not limited to appendicitis, gastritis, cholecystitis, diverticulitis Patient's imaging again reveals findings in line with diverticulitis Given the patient's discomfort and presentation given her age and risk factors patient requires IV antibiotics and admission She was agreeable at this time given the discomfort And patient admitted for further inpatient care Labs Test 11/22/16 04:40 White Blood Count 9.3 K/UL (4.8-10.8) Red Blood Count 3.70 M/UL (4.20-5.40) Hemoglobin 9.6 G/DL (12.0-16.0) Hematocrit 30.2 % (37.0-47.0) Mean Corpuscular Volume 82 FL (80-99) Mean Corpuscular Hemoglobin 25.9 PG (27.0-31.0) Mean Corpuscular Hemoglobin Concent 31.7 G/DL (32.0-36.0) Red Cell Distribution Width 13.0 % (11.6-14.8) Platelet Count 312 K/UL (150-450) Mean Platelet Volume 4.8 FL (6.5-10.1) Neutrophils (%) (Auto) 64.7 % (45.0-75.0) Lymphocytes (%) (Auto) 21.0 % (20.0-45.0) Monocytes (%) (Auto) 13.1 % (1.0-10.0) Eosinophils (%) (Auto) 0.6 % (0.0-3.0) Basophils (%) (Auto) 0.6 % (0.0-2.0) Hemoglobin A1c 5.7 % (< 6.0) Carcinoembryonic Antigen 1.3 ng/mL Rhythm Strip Diag. Results EP Interpretation: yes Rate: 77 Rhythm: NSR, no PVC's, no ectopy CT/MRI/US Diagnostic Results CT/MRI/US Diagnostic Results : Impression CT abdomen pelvisImpression: Evidence of diverticulitis involving the descending colon/sigmoid colon. Portable mural-based abscess. Similar findings seen on the prior study. Findings could certainly be chronic or recurrent. Cannot exclude the possibility of neoplasm. Therefore recommend followup colonoscopy. Atherosclerotic disease Fatty liver Status post cholecystectomy. Liquid stool in the colon noted. Correlate for diarrhea and gastroenteritis. Spondylosis The CT scanner at [facility] is accredited by the [employer] and the scans are performed using dose optimization techniques as appropriate to a performed exam including Automatic Exposure control. Last Vital Signs Date Time Temp Pulse Resp B/P (MAP) Pulse Ox O2 Delivery O2 Flow Rate FiO2 11/20/16 10:53 98.1 79 16 119/71 98 Room Air Status: improved Disposition: ADMITTED INPATIENT Condition: Serious Scripts Metronidazole* (FLAGYL*) 500 Mg Tablet 500 MG ORAL EVERY 8 HOURS for 7 Days, #21 TAB Prov: TIERRA MATIAS 11/23/16 Levofloxacin* (LEVAQUIN*) 500 Mg Tablet 500 MG ORAL DAILY for 7 Days, #7 TAB Prov: TIERRA MATIAS 11/23/16 EKTA SINHA D.O. Nov 20, 2016 11:20
[2016-11-20 12:00] LABS: BASOPHILS % (AUTO) 0.8 % (0.0-2.0); LYMPHOCYTES % (AUTO) 19.6 % (20.0-45.0); MEAN CORPUSCULAR HEMOGLOBIN 25.9 PG (27.0-31.0); MEAN CORPUSCULAR HGB CONC 31.8 G/DL (32.0-36.0); MEAN CORPUSCULAR VOLUME 81 FL (80-99); MEAN PLATELET VOLUME 5.1 FL (6.5-10.1); MONOCYTES % (AUTO) 9.5 % (1.0-10.0); NEUTROPHILS % (AUTO) 68.2 % (45.0-75.0); PLATELET COUNT 422 K/UL (150-450); WHITE BLOOD COUNT 10.8 K/UL (4.8-10.8)
[2016-11-20 12:23] LABS: ALANINE AMINOTRANSFERASE 8 U/L (3-33); ALBUMIN/GLOBULIN RATIO 0.9 (1.0-2.7); ANION GAP 13 (5-15); ASPARTATE AMINO TRANSFERASE 12 U/L (5-40); CALCIUM 9.1 mg/dL (8.6-10.2); CARBON DIOXIDE 26 mEQ/L (20-30); CHLORIDE 101 mEQ/L (98-107); CREATININE 1.3 mg/dL (0.5-0.9); HEMOLYSIS 1; LIPASE 59 U/L (< 60); SODIUM 140 mEQ/L (135-145); TOTAL PROTEIN 7.4 g/dL (6.6-8.7)
[2016-11-20 12:53] VITALS: BP 119/71
--- NOTE | 2016-11-20 13:38 | Diagnostic Imaging Report ---
Indication: Abdominal pain Technique: Continuous helical transaxial imaging of the abdomen and pelvis was obtained from the lung bases to the pubic symphysis during intravenous contrast administration. Coronal 2-D reformats were also obtained. Study obtained in a Siemens sensation [address] Total Dose length Product (DLP): [address] Dose Index Volume (CTDIvol): 2.15, 14.12 mGy Comparison: 06/29/16 Findings: Minimal reticular densities are noted at the anterior margins of the lung bases. The liver is hypodense slightly. Calcification in the aorta noted. Cholecystectomy noted. Some breathing motion artifacts are present limiting evaluation. There is a several centimeter length portion of the descending colon proximal sigmoid that show wall thickening. Some pericolonic inflammation and soft tissue stranding is present and there are diverticula present. A primarily gas-filled collection noted eccentrically within the distal sigmoid colon probably representing a mural-based abscess. Similar findings seen previously. Findings likely on the basis of acute diverticulitis. However, would consider differential diagnosis of neoplasm. Although less likely similar findings were seen on the last study 06/29/16. Recommend colonoscopy for further evaluation. There are small nodes in the adjacent mesentery slightly medial and superior to the area of involvement. These are presumably small nodes. Liquefied stool is present in the colon. Correlate for diarrhea. Atrophic uterus noted. There is no abscess or free fluid. There is narrowing of intervertebral discs and accompanying endplate osteophyte formation. Hypertrophied facet joints also demonstrated. Impression: Evidence of diverticulitis involving the descending colon/sigmoid colon. Portable mural-based abscess. Similar findings seen on the prior study. Findings could certainly be chronic or recurrent. Cannot exclude the possibility of neoplasm. Therefore recommend followup colonoscopy. Atherosclerotic disease Fatty liver Status post cholecystectomy. Liquid stool in the colon noted. Correlate for diarrhea and gastroenteritis. Spondylosis The CT scanner at [facility] is accredited by the [employer] and the scans are performed using dose optimization techniques as appropriate to a performed exam including Automatic Exposure control.
[2016-11-20] MEDS ORDERED: Milk of Magnesia 30ml Ud ORAL PRN (15:45)
[2016-11-20] MEDS ORDERED: Morphine Sulfate 4mg/ml Inj IVP PRN (15:45)
[2016-11-20] MEDS ORDERED: Zolpidem 5mg tab ORAL PRN (15:45)
[2016-11-20 15:51] VITALS: BP 119/71
--- NOTE | 2016-11-20 15:51 | History & Physical ---
History and Physical History & Physicial HP dictated # [id number] TIERRA MATIAS Nov 20, 2016 15:51
[2016-11-20] MEDS: Irbesartan 150mg tablet ORAL SCH (16:00)
[2016-11-20] MEDS: Atenolol 25mg tab ORAL SCH (16:00)
[2016-11-20] MEDS: metFORMIN 500mg tab ORAL SCH (17:52)
--- NOTE | 2016-11-20 19:20 | General Progress Note ---
Assessment/Plan Assessment/Plan Assessment - LLQ pain x 2 days, now improved - Diverticulosis +/- diverticulitis (but normal WBC) - anemia Recommendations - 10 days po abx - check stool OB - check Fe panel - patient advised to f/u with GI in 1 mo for EGD/Colon Thank you Jefferson Srinivasan MD Subjective Allergies: Coded Allergies: PENICILLINS (Verified Allergy, Unknown, 04/25/16) Objective Last 24 Hour Vital Signs Date Time Temp Pulse Resp B/P (MAP) Pulse Ox O2 Delivery O2 Flow Rate FiO2 11/20/16 16:00 119/71 11/20/16 16:00 63 119/71 11/20/16 15:51 98.1 16 119/71 98 Room Air 11/20/16 15:51 63 12 109/60 100 Room Air 11/20/16 12:53 98.1 16 119/71 98 Room Air 11/20/16 10:53 98.1 79 16 119/71 98 Room Air Intake and Output 11/20/16 11/21/16 19:00 07:00 Output Total 120 ml Balance -120 ml Output Urine Total 120 ml Laboratory Tests 11/20/16 11:31: White Blood Count 10.8, Red Blood Count 3.90L, Hemoglobin 10.1L, Hematocrit 31.7L, Mean Corpuscular Volume 81, Mean Corpuscular Hemoglobin 25.9L, Mean Corpuscular Hemoglobin Concent 31.8L, Red Cell Distribution Width 13.0, Platelet Count 422, Mean Platelet Volume 5.1L, Neutrophils (%) (Auto) 68.2, Lymphocytes (%) (Auto) 19.6L, Monocytes (%) (Auto) 9.5, Eosinophils (%) (Auto) 2.0, Basophils (%) (Auto) 0.8, Sodium Level 140, Potassium Level 3.0L, Chloride Level 101, Carbon Dioxide Level 26, Anion Gap 13, Blood Urea Nitrogen 13, Creatinine 1.3H, Estimat Glomerular Filtration Rate , Glucose Level 138H, Calcium Level 9.1, Total Bilirubin < 0.2, Aspartate Amino Transf (AST/SGOT) 12, Alanine Aminotransferase (ALT/SGPT) 8, Alkaline Phosphatase 78, Total Protein 7.4, Albumin 3.6, Globulin 3.8, Albumin/Globulin Ratio 0.9L, Lipase 59 Height (Feet): 5 Height (Inches): 2.00 Weight (Pounds): 140 JEFFERSON SRINIVASAN Nov 20, 2016 19:20
[2016-11-20 20:00] VITALS: BP 121/60
[2016-11-20 20:01] LABS: APPEARANCE,URINE CLEAR; KETONES,URINE NEGATIVE (NEGATIVE); LEUKOCYTE ESTERASE ,URINE 1+ (NEGATIVE); NITRITE,URINE NEGATIVE (NEGATIVE); PH,URINE 6 (4.5-8.0); PROTEIN,URINE NEGATIVE (NEGATIVE); UROBILINOGEN,URINE NORMAL MG/DL (0.0-1.0)
[2016-11-20 20:12] LABS: RBC,URINE 0-2 /HPF (0 - 2)
[2016-11-20 20:13] LABS: SQUAMOUS EPITHELIAL CELL,UR OCCASIONAL /LPF (NONE/OCC); WBC,URINE 0-2 /HPF (0 - 2)
[2016-11-21 00:20] VITALS: BP 118/56
--- NOTE | 2016-11-21 02:45 | History and Physical Report ---
DATE OF ADMISSION: 11/20/2016 History Of Present Illness: This is a 76-year-old female, who was in her usual state of health until last night when started having severe left lower abdominal pain. The patient finally came to the emergency room and was diagnosed with diverticulitis and she was admitted for further care. She had a bowel movement this morning, which was okay. Past Medical History: Includes history of diabetes mellitus and history of hypertension. ALLERGIES: Penicillin. SOCIAL HISTORY: No history of smoking or alcohol abuse. REVIEW OF SYSTEMS: Noncontributory except for above. PHYSICAL EXAMINATION: GENERAL: The patient is an elderly female, in no acute distress. Vital Signs: Blood pressure is 119/71, pulse 79, respiratory rate is 16, and temperature 98.1. HEENT: [address] conjunctivae. Anicteric sclerae. NECK: Supple. LUNGS: Clear to auscultation. HEART: S1 and S2 without murmurs or rubs. ABDOMEN: Soft. There is mild tenderness to the left lower quadrant. EXTREMITIES: No cyanosis or edema. Laboratory Findings: The CBC shows a WBC of 10.8, hematocrit is 31.7, hemoglobin is 10.1, and platelet is 222,000. The chemistry panel shows serum sodium 140, potassium 3.0, chloride 101, CO2 26, BUN 13, and creatinine 1.3. Blood sugar is 138. The patient had a CT scan of the abdomen and pelvis with intravenous contrast, this showed evidence of diverticulitis involving the descending colon and sigmoid colon and some mural-based abscess. Assessment: This is a 76-year-old female, who is admitted with abdominal pain and diagnosis of diverticulitis on the CT scan and also there is a mention in the CT report that malignancy cannot be ruled out completely. Plan: The patient will be on a liquid diet, IV antibiotics, and pain medication. ID as well as GI consultation will be obtained. MIPS : Meassure #1 A1C was ordered Measure # 130 done Measure # 318 low risk Vito Ramirez M.D. DR: MYLES JOB#: [id number] CC: LUCAS
[2016-11-21 04:00] VITALS: BP 120/62
[2016-11-21 07:35] LABS: HEMOGLOBIN A1C 5.7 % (< 6.0)
[2016-11-21 07:44] LABS: ALANINE AMINOTRANSFERASE 7 U/L (3-33); ALBUMIN/GLOBULIN RATIO 0.9 (1.0-2.7); ANION GAP 14 (5-15); ASPARTATE AMINO TRANSFERASE 11 U/L (5-40); CARBON DIOXIDE 26 mEQ/L (20-30); CHLORIDE 106 mEQ/L (98-107); CHOLESTEROL 148 mg/dL (< 200); CHOLESTEROL/HDL RATIO 2.3 (3.3-4.4); HEMOLYSIS 0; LDL CHOLESTEROL CALC 61 mg/dL (60-99); POTASSIUM 3.4 mEQ/L (3.4-4.9); SODIUM 146 mEQ/L (135-145); TOTAL PROTEIN 7.1 g/dL (6.6-8.7)
[2016-11-21 07:59] LABS: HEMOLYSIS 10; IRON 21 ug/dL (37-145); TOTAL IRON BINDING CAPACITY 260 ug/dL (250-400)
[2016-11-21 08:18] VITALS: BP 132/66
[2016-11-21] MEDS: Irbesartan 150mg tablet ORAL SCH (08:45)
[2016-11-21] MEDS: Atenolol 25mg tab ORAL SCH (08:45)
[2016-11-21] MEDS: metFORMIN 500mg tab ORAL SCH (08:45)
[2016-11-21 12:26] VITALS: BP 100/59
[2016-11-21] MEDS ORDERED: 1/2 NS 1000ml IV ONE (16:07)
[2016-11-21] MEDS ORDERED: Tubing IV Secondary IV ONE (16:07)
[2016-11-21 16:18] VITALS: BP 113/55
--- NOTE | 2016-11-21 18:03 | General Progress Note ---
Assessment/Plan Problem List: (1) Diverticulitis ICD Codes: K57.92 - Diverticulitis of intestine, part unspecified, without perforation or abscess without bleeding SNOMED: 912147167 (2) DM (diabetes mellitus) ICD Codes: E11.9 - Type 2 diabetes mellitus without complications SNOMED: 84216270 (3) HTN (hypertension) ICD Codes: I10 - Essential (primary) hypertension SNOMED: 94435261 (4) Iron deficiency anemia ICD Codes: D50.9 - Iron deficiency anemia, unspecified SNOMED: 86277173 Assessment/Plan abxs Advance diet tomorrow watch BS IV Iron MIPS : Measure#1 Hemoglobin A1C was ordered Measure #318 low risk for falls Subjective Allergies: Coded Allergies: PENICILLINS (Verified Allergy, Unknown, 04/25/16) Subjective feels better Objective Last 24 Hour Vital Signs Date Time Temp Pulse Resp B/P (MAP) Pulse Ox O2 Delivery O2 Flow Rate FiO2 11/21/16 16:18 99.1 66 19 113/55 97 Room Air 11/21/16 13:30 99.3 11/21/16 13:19 100.9 11/21/16 12:26 100.9 72 20 100/59 95 Room Air 11/21/16 08:45 132/66 11/21/16 08:45 84 132/66 11/21/16 08:18 99.0 84 20 132/66 98 Room Air 11/21/16 04:00 97.8 69 20 120/62 97 Room Air 11/21/16 00:20 98.1 67 20 118/56 98 Room Air 11/20/16 20:00 97.9 62 20 121/60 98 Room Air 11/20/16 20:00 97.9 62 20 121/60 98 Room Air Intake and Output 11/21/16 11/22/16 19:00 07:00 Intake Total 1030 ml Balance 1030 ml Intake Oral 480 ml IV Total 550 ml # Voids 2 # Bowel Movements 1 Laboratory Tests 11/20/16 19:30: Urine Color Pale yellow, Urine Appearance Clear, Urine pH 6, Urine Specific [place] 1.010, Urine Protein Negative, Urine Glucose (UA) Negative, Urine Ketones Negative, Urine Occult Blood Negative, Urine Nitrite Negative, Urine Bilirubin Negative, Urine Urobilinogen Normal, Urine Leukocyte Esterase 1+H, Urine RBC 0-2, Urine WBC 0-2, Urine Squamous Epithelial Cells Occasional, Urine Bacteria None 11/21/16 05:30: Sodium Level 146H, Potassium Level 3.4, Chloride Level 106, Carbon Dioxide Level 26, Anion Gap 14, Blood Urea Nitrogen 10, Creatinine 1.0H, Estimat Glomerular Filtration Rate , Glucose Level 99, Hemoglobin A1c 5.7, Calcium Level 9.0, Iron Level 21L, Total Iron Binding Capacity 260, Percent Iron Saturation 8L, Unsaturated Iron Binding 239, Total Bilirubin < 0.2, Aspartate Amino Transf (AST/SGOT) 11, Alanine Aminotransferase (ALT/SGPT) 7, Alkaline Phosphatase 94, Total Protein 7.1, Albumin 3.4L, Globulin 3.7, Albumin/Globulin Ratio 0.9L, Triglycerides Level 110, Cholesterol Level 148, LDL Cholesterol 61, HDL Cholesterol 65H, Cholesterol/HDL Ratio 2.3L Height (Feet): 5 Height (Inches): 2.00 Weight (Pounds): 140 Cardiovascular: normal rate Respiratory/Chest: lungs clear Abdomen: non tender, soft Edema: no edema noted TIERRA Beach Nov 21, 2016 18:03
--- NOTE | 2016-11-21 18:54 | General Progress Note ---
Assessment/Plan Problem List: (1) DM (diabetes mellitus) ICD Codes: E11.9 - Type 2 diabetes mellitus without complications SNOMED: 88745271 (2) HTN (hypertension) ICD Codes: I10 - Essential (primary) hypertension SNOMED: 79289753 (3) Diverticulitis ICD Codes: K57.92 - Diverticulitis of intestine, part unspecified, without perforation or abscess without bleeding SNOMED: 844124068 (4) Iron deficiency anemia ICD Codes: D50.9 - Iron deficiency anemia, unspecified SNOMED: 25677949 Assessment/Plan iv iron fu labs tolerating diet fu CEA out patient colonoscopy Subjective ROS Limited/Unobtainable: Yes Allergies: Coded Allergies: PENICILLINS (Verified Allergy, Unknown, 04/25/16) Subjective no abd pain Objective Last 24 Hour Vital Signs Date Time Temp Pulse Resp B/P (MAP) Pulse Ox O2 Delivery O2 Flow Rate FiO2 11/21/16 16:18 99.1 66 19 113/55 97 Room Air 11/21/16 13:30 99.3 11/21/16 13:19 100.9 11/21/16 12:26 100.9 72 20 100/59 95 Room Air 11/21/16 08:45 132/66 11/21/16 08:45 84 132/66 11/21/16 08:18 99.0 84 20 132/66 98 Room Air 11/21/16 04:00 97.8 69 20 120/62 97 Room Air 11/21/16 00:20 98.1 67 20 118/56 98 Room Air 11/20/16 20:00 97.9 62 20 121/60 98 Room Air 11/20/16 20:00 97.9 62 20 121/60 98 Room Air Intake and Output 11/21/16 11/22/16 19:00 07:00 Intake Total 1270 ml Output Total 300 ml Balance 970 ml Intake Oral 720 ml IV Total 550 ml Output Urine Total 300 ml # Voids 2 # Bowel Movements 1 Laboratory Tests 11/20/16 19:30: Urine Color Pale yellow, Urine Appearance Clear, Urine pH 6, Urine Specific [place] 1.010, Urine Protein Negative, Urine Glucose (UA) Negative, Urine Ketones Negative, Urine Occult Blood Negative, Urine Nitrite Negative, Urine Bilirubin Negative, Urine Urobilinogen Normal, Urine Leukocyte Esterase 1+H, Urine RBC 0-2, Urine WBC 0-2, Urine Squamous Epithelial Cells Occasional, Urine Bacteria None 11/21/16 05:30: Sodium Level 146H, Potassium Level 3.4, Chloride Level 106, Carbon Dioxide Level 26, Anion Gap 14, Blood Urea Nitrogen 10, Creatinine 1.0H, Estimat Glomerular Filtration Rate , Glucose Level 99, Hemoglobin A1c 5.7, Calcium Level 9.0, Iron Level 21L, Total Iron Binding Capacity 260, Percent Iron Saturation 8L, Unsaturated Iron Binding 239, Total Bilirubin < 0.2, Aspartate Amino Transf (AST/SGOT) 11, Alanine Aminotransferase (ALT/SGPT) 7, Alkaline Phosphatase 94, Total Protein 7.1, Albumin 3.4L, Globulin 3.7, Albumin/Globulin Ratio 0.9L, Triglycerides Level 110, Cholesterol Level 148, LDL Cholesterol 61, HDL Cholesterol 65H, Cholesterol/HDL Ratio 2.3L Height (Feet): 5 Height (Inches): 2.00 Weight (Pounds): 140 General Appearance: alert EENT: normal ENT inspection Neck: supple Cardiovascular: normal rate Respiratory/Chest: lungs clear Abdomen: normal bowel sounds, non tender, soft Extremities: non-tender JEAN MARIE FELIX Nov 21, 2016 18:54
[2016-11-21 20:00] VITALS: BP 138/64
[2016-11-21] MEDS: Iron Sucrose 100 MG in NS 55 ML IV SCH (20:31)
[2016-11-22] VITALS: BP 138/66
[2016-11-22 04:35] VITALS: BP 110/55
[2016-11-22 07:49] LABS: BASOPHILS % (AUTO) 0.6 % (0.0-2.0); EOSINOPHILS % (AUTO) 0.6 % (0.0-3.0); MEAN CORPUSCULAR HEMOGLOBIN 25.9 PG (27.0-31.0); MEAN CORPUSCULAR HGB CONC 31.7 G/DL (32.0-36.0); MEAN CORPUSCULAR VOLUME 82 FL (80-99); MEAN PLATELET VOLUME 4.8 FL (6.5-10.1); MONOCYTES % (AUTO) 13.1 % (1.0-10.0); NEUTROPHILS % (AUTO) 64.7 % (45.0-75.0); PLATELET COUNT 312 K/UL (150-450); WHITE BLOOD COUNT 9.3 K/UL (4.8-10.8)
[2016-11-22 07:53] LABS: HEMOGLOBIN A1C 5.7 % (< 6.0)
[2016-11-22 08:00] VITALS: BP 116/46
[2016-11-22] MEDS: Atenolol 25mg tab ORAL SCH (09:00)
[2016-11-22] MEDS: Irbesartan 150mg tablet ORAL SCH (09:00)
[2016-11-22] MEDS: metFORMIN 500mg tab ORAL SCH (09:32)
[2016-11-22] MEDS ORDERED: Tubing IV Secondary IV ONE (09:39)
[2016-11-22] MEDS ORDERED: 1/2 NS 1000ml IV ONE (09:39)
[2016-11-22 12:00] VITALS: BP 115/58
--- NOTE | 2016-11-22 13:15 | General Progress Note ---
Assessment/Plan Problem List: (1) DM (diabetes mellitus) ICD Codes: E11.9 - Type 2 diabetes mellitus without complications SNOMED: 81755530 (2) HTN (hypertension) ICD Codes: I10 - Essential (primary) hypertension SNOMED: 61604646 (3) Diverticulitis ICD Codes: K57.92 - Diverticulitis of intestine, part unspecified, without perforation or abscess without bleeding SNOMED: 357752838 (4) Iron deficiency anemia ICD Codes: D50.9 - Iron deficiency anemia, unspecified SNOMED: 62818737 Assessment/Plan iv iron fu labs tolerating diet fu CEA out patient colonoscopy Subjective ROS Limited/Unobtainable: Yes Allergies: Coded Allergies: PENICILLINS (Verified Allergy, Unknown, 04/25/16) Subjective no abd pain Objective Last 24 Hour Vital Signs Date Time Temp Pulse Resp B/P (MAP) Pulse Ox O2 Delivery O2 Flow Rate FiO2 11/22/16 09:00 116/46 11/22/16 09:00 64 116/46 11/22/16 08:00 99.9 64 15 116/46 97 11/22/16 04:35 96.0 56 18 110/55 95 Room Air 11/22/16 00:00 99.3 79 19 138/66 98 Room Air 11/21/16 20:00 99.5 82 20 138/64 97 Room Air 11/21/16 16:18 99.1 66 19 113/55 97 Room Air 11/21/16 13:30 99.3 11/21/16 13:19 100.9 Intake and Output 11/22/16 11/23/16 19:00 07:00 Intake Total 250 ml Balance 250 ml IV Total 250 ml # Voids 2 # Bowel Movements 1 Laboratory Tests 11/22/16 04:40: White Blood Count 9.3, Red Blood Count 3.70L, Hemoglobin 9.6L, Hematocrit 30.2L , Mean Corpuscular Volume 82, Mean Corpuscular Hemoglobin 25.9L, Mean Corpuscular Hemoglobin Concent 31.7L, Red Cell Distribution Width 13.0, Platelet Count 312, Mean Platelet Volume 4.8L, Neutrophils (%) (Auto) 64.7, Lymphocytes (%) (Auto) 21.0, Monocytes (%) (Auto) 13.1H, Eosinophils (%) (Auto) 0.6, Basophils (%) (Auto) 0.6, Hemoglobin A1c 5.7, Carcinoembryonic Antigen 1.3 Height (Feet): 5 Height (Inches): 2.00 Weight (Pounds): 140 General Appearance: alert EENT: normal ENT inspection Neck: supple Cardiovascular: normal rate Respiratory/Chest: lungs clear Abdomen: normal bowel sounds, non tender, soft Extremities: non-tender JEAN MARIE FELIX Nov 22, 2016 13:15
--- NOTE | 2016-11-22 14:06 | General Progress Note ---
Assessment/Plan Problem List: (1) Diverticulitis ICD Codes: K57.92 - Diverticulitis of intestine, part unspecified, without perforation or abscess without bleeding SNOMED: 357545327 (2) DM (diabetes mellitus) ICD Codes: E11.9 - Type 2 diabetes mellitus without complications SNOMED: 81097177 (3) HTN (hypertension) ICD Codes: I10 - Essential (primary) hypertension SNOMED: 73993119 (4) Iron deficiency anemia ICD Codes: D50.9 - Iron deficiency anemia, unspecified SNOMED: 68431178 Assessment/Plan abxs Diabetic diet watch BS IV Iron MIPS : Measure#1 Hemoglobin A1C was 5.7 0n 11/22/16 Measure #318 low risk for falls Subjective Allergies: Coded Allergies: PENICILLINS (Verified Allergy, Unknown, 04/25/16) Subjective feels better Objective Last 24 Hour Vital Signs Date Time Temp Pulse Resp B/P (MAP) Pulse Ox O2 Delivery O2 Flow Rate FiO2 11/22/16 09:00 116/46 11/22/16 09:00 64 116/46 11/22/16 08:00 99.9 64 15 116/46 97 11/22/16 04:35 96.0 56 18 110/55 95 Room Air 11/22/16 00:00 99.3 79 19 138/66 98 Room Air 11/21/16 20:00 99.5 82 20 138/64 97 Room Air 11/21/16 16:18 99.1 66 19 113/55 97 Room Air Intake and Output 11/22/16 11/23/16 19:00 07:00 Intake Total 350 ml Balance 350 ml IV Total 350 ml # Voids 2 # Bowel Movements 1 Laboratory Tests 11/22/16 04:40: White Blood Count 9.3, Red Blood Count 3.70L, Hemoglobin 9.6L, Hematocrit 30.2L , Mean Corpuscular Volume 82, Mean Corpuscular Hemoglobin 25.9L, Mean Corpuscular Hemoglobin Concent 31.7L, Red Cell Distribution Width 13.0, Platelet Count 312, Mean Platelet Volume 4.8L, Neutrophils (%) (Auto) 64.7, Lymphocytes (%) (Auto) 21.0, Monocytes (%) (Auto) 13.1H, Eosinophils (%) (Auto) 0.6, Basophils (%) (Auto) 0.6, Hemoglobin A1c 5.7, Carcinoembryonic Antigen 1.3 Height (Feet): 5 Height (Inches): 2.00 Weight (Pounds): 140 Cardiovascular: normal rate Respiratory/Chest: lungs clear Abdomen: non tender TIERRA MATIAS Nov 22, 2016 14:06
[2016-11-22 16:00] VITALS: BP 112/60
[2016-11-22 20:00] VITALS: BP 131/56
[2016-11-22] MEDS: Iron Sucrose 100 MG in NS 55 ML IV SCH (20:57)
[2016-11-23] VITALS: BP 118/60
[2016-11-23 04:00] VITALS: BP 121/57
[2016-11-23 08:00] VITALS: BP 120/50
[2016-11-23] MEDS: metFORMIN 500mg tab ORAL SCH (08:30)
[2016-11-23 08:31] VITALS: BP 120/50
[2016-11-23] MEDS: Atenolol 25mg tab ORAL SCH (08:31)
[2016-11-23] MEDS: Irbesartan 150mg tablet ORAL SCH (08:31)
--- NOTE | 2016-11-23 09:01 | Consultation ---
DATE OF CONSULTATION: 11/20/2016 GASTROENTEROLOGY CONSULTATION CONSULTING PHYSICIAN: Jefferson Srinivasan M.D. REFERRING PHYSICIAN: Vito Ramirez M.D. CHIEF COMPLAINT: I was asked to see this patient for evaluation of abdominal pain by Dr. Vito Ramirez. HISTORY OF PRESENT ILLNESS: The patient is a pleasant 76-year-old woman, who was in her usual state of health until 2 days ago when she noticed left lower quadrant abdominal pain. There was no nausea, vomiting, diarrhea, or constipation. She did receive a CT scan overnight and had 1 loose bowel movement after the CT scan. She was admitted here earlier this year in April and had a CT scan showing diverticulosis and diverticulitis. A thickening appearance was seen again on her CT scan. The patient thinks she has had a colonoscopy possibly a year or so ago in another hospital, she cannot remember the hospital name or the results of the colonoscopy. She was found to be anemic, history of psoriasis, status post unilateral oophorectomy. SOCIAL HISTORY: The patient does not smoke or drink alcohol. ALLERGIES: None. FAMILY HISTORY: Noncontributory. REVIEW OF SYSTEMS: Otherwise negative. PHYSICAL EXAMINATION: GENERAL: A pleasant woman seen in her room. HEENT: Normocephalic and atraumatic. Sclerae are anicteric. Oropharynx is clear. NECK: Supple. CHEST: Clear to auscultation. CARDIOVASCULAR: Regular rate. ABDOMEN: Soft with good bowel sounds. There is minimal tenderness in the left lower quadrant. There is a midline scar, which is old. EXTREMITIES: No edema. NEUROLOGIC: Nonfocal. LABORATORY DATA: Noted. ASSESSMENT: This patient presents with a 2-day history of mild left lower quadrant abdominal pain, which is now improving. The CT scan showed definite diverticulosis and a thickening pattern suggestive of either diverticulitis or perhaps chronic scarring from diverticulosis. I doubt if there is an intramural abscess since the patient has no white count and does not appear to be that ill. Nonetheless, I would give the patient an empiric course of antibiotics for 10 days. I strongly advised the patient that she should undergo endoscopy and colonoscopy in about a month or so to evaluate both the sigmoid findings and also to rule out any other causes for anemia. I gave her my business card and she knows to call for followup. RECOMMENDATIONS: 1. Follow abdominal exam. 2. Ten-day course of antibiotics. 3. Outpatient endoscopy and colonoscopy. Thank you for asking me to participate in the care of this patient. Jefferson Srinivasan M.D. DR: Keagan JOB#: [id number] CC: LUCAS
--- NOTE | 2016-11-23 09:02 | Consultation ---
DATE OF CONSULTATION: 11/22/2016 INFECTIOUS DISEASE CONSULTATION CONSULTING PHYSICIAN: Julio C Ramirez M.D. PRIMARY ATTENDING PHYSICIAN: Vito Ramirez M.D. REASON FOR CONSULT: Diverticulitis and fever. HISTORY OF PRESENT ILLNESS: The patient is a 76-year-old female, admitted on 11/20/2016 complaining of left lower abdominal pain for two days associated with diarrhea that was not too frequent. The CT scan of the abdomen showed left-sided diverticulitis. No significant leukocytosis. At the time of admission, developed fever up to 100.9 yesterday. PAST MEDICAL HISTORY: Significant for diabetes mellitus, hypertension, history of cholecystectomy. ALLERGIES: Allergy to penicillin, developed rash. MEDICATIONS: Iron, sucrose, Levaquin, Flagyl, atorvastatin, Rantac, atenolol, metformin, Avapro, morphine sulfate, magnesium hydroxide, Zofran, Ambien. SOCIAL HISTORY: Originally from [facility]. No history of alcohol, drug abuse or smoking. REVIEW OF SYSTEMS: The patient has no complaints except mild diarrhea. PHYSICAL EXAMINATION: GENERAL APPEARANCE: No acute distress. VITAL SIGNS: Temperature 99.9 degrees, pulse 64, and blood pressure 116/46. HEAD AND NECK: [place] conjunctivae. HEART: S1 and S2 regular. Normal rate. LUNGS: Clear. ABDOMEN: Soft, and nontender. Bowel sounds present. EXTREMITIES: Has no edema. NEUROLOGIC: Awake, alert, and oriented x3. LABORATORY AND DIAGNOSTIC DATA: WBC 9.3, hemoglobin 9.6; hematocrit 30.2, and platelets 312,000. Sodium 146, potassium 3.4, chloride 106, bicarbonate 26, BUN 10, and creatinine 1. Normal LFT. Albumin is slightly low 3.4. CT scan of the abdomen showed diverticulitis involving descending colon, sigmoid colon. Fatty liver status post cholecystectomy and spondylosis. IMPRESSION: Diverticulitis of left colon involving sigmoid colon and descending colon. The patient has a history of diabetes and hypertension and penicillin allergy. Recommend the patient is to continue with Levaquin. The patient will have colonoscopy as an outpatient. We will follow up the labs at the end of our exam. At the end of my exam, I thank Dr. Vito Ramirez for involving me in the care of this patient. Julio C Ramirez M.D. DR: ALLI JOB#: [id number] CC: LUCAS
--- NOTE | 2016-11-23 09:31 | Infectious Diseases Prog Note ---
Assessment/Plan Assessment/Plan A; Diverticulitis DM type 2 HPN Penicillin allergy P; Agree with discharge with PO Levaquin & Flagyl X 7 days Outpatient colonoscopy Subjective ROS Limited/Unobtainable: No Constitutional: Reports: no symptoms Respiratory: Reports: no symptoms Cardiovascular: Reports: no symptoms Gastrointestinal/Abdominal: Reports: no symptoms Genitourinary: Reports: no symptoms Allergies: Coded Allergies: PENICILLINS (Verified Allergy, Unknown, 04/25/16) Objective Vital Signs Last 24 Hour Vital Signs Date Time Temp Pulse Resp B/P (MAP) Pulse Ox O2 Delivery O2 Flow Rate FiO2 11/23/16 08:31 120/50 11/23/16 08:31 63 120/50 11/23/16 08:00 98.2 63 20 120/50 97 Room Air 11/23/16 04:00 97.8 65 20 121/57 96 Room Air 11/23/16 00:00 97.7 58 19 118/60 98 Room Air 11/22/16 20:00 97.6 74 20 131/56 97 Room Air 11/22/16 16:00 97.7 65 15 112/60 98 11/22/16 12:00 99.9 67 15 115/58 98 Height (Feet): 5 Height (Inches): 2.00 Weight (Pounds): 140 General Appearance: no acute distress HEENT: mucous membranes moist Respiratory/Chest: lungs clear Cardiovascular: normal rate Abdomen: soft, non tender Extremities: no edema Neurologic/Psychiatric: alert, oriented x 3, responsive Current Medications Medications (Trade) Dose Ordered Sig/Sharon Route PRN Reason Start Time Stop Time Status Last Admin Dose Admin Acetaminophen (Tylenol) 650 mg Q4H PRN ORAL Prn Headache/Temp > 101 11/21/16 12:00 12/21/16 11:59 11/22/16 21:25 Atenolol (Tenormin) 25 mg DAILY ORAL 11/20/16 16:00 12/20/16 15:59 11/21/16 08:45 Atorvastatin Calcium (Lipitor) 10 mg BEDTIME ORAL 11/20/16 21:00 12/20/16 20:59 11/22/16 20:57 Dextrose (Dextrose 50%) STAT PRN IV Hypoglycemia 11/20/16 15:45 12/20/16 15:44 Irbesartan (Avapro) 150 mg DAILY ORAL 11/20/16 16:00 12/20/16 15:59 11/21/16 08:45 Iron Sucrose 100 mg/Sodium Chloride 60 ml @ 240 mls/hr BEDTIME IV 11/21/16 21:00 11/25/16 21:14 11/22/16 20:57 Levofloxacin 100 ml @ 100 mls/hr Q24H IVPB 11/21/16 14:00 11/28/16 13:59 11/22/16 13:16 Magnesium Hydroxide (Mom) 30 ml HSPRN PRN ORAL Constipation 11/20/16 15:45 12/20/16 15:44 Metformin HCl (Glucophage) 500 mg DAILY ORAL 11/20/16 16:00 12/20/16 15:59 11/23/16 08:30 Metronidazole 100 ml @ 100 mls/hr Q8H IVPB 11/20/16 23:00 11/27/16 22:59 11/23/16 05:58 Morphine Sulfate (Morphine Sulfate) 4 mg Q3H PRN IVP Severe Pain (Pain Scale 7-10) 11/20/16 15:45 11/27/16 15:44 Ondansetron HCl (Zofran) 4 mg Q6H PRN IVP Nausea & Vomiting 11/20/16 15:45 12/20/16 15:44 Ranitidine HCl (Zantac) 150 mg TWICE A DAY ORAL 11/20/16 18:00 12/20/16 17:59 11/23/16 08:30 Sodium Chloride 1,000 ml @ 50 mls/hr Q20H IV 11/20/16 15:45 12/20/16 15:44 11/23/16 03:37 Zolpidem Tartrate (Ambien) 5 mg HSPRN PRN ORAL Insomnia 11/20/16 15:45 11/27/16 15:44 CHAIM MATIAS Nov 23, 2016 09:31
[2016-11-23] MEDS ORDERED: METRONIDAZOLE500 MG ORAL (11:39)
[2016-11-23] MEDS ORDERED: LEVAQUIN500 MG ORAL (11:39)
--- NOTE | 2016-11-23 11:47 | Consultation ---
Consult Note Assessment/Plan DC dictated # [id number] TIERRA MATIAS Nov 23, 2016 11:47
--- NOTE | 2016-11-23 11:49 | Consultation ---
Consult Note Assessment/Plan Dc dictated #[id number] TIERRA MATIAS Nov 23, 2016 11:49
[2016-11-23] MEDS ORDERED: 1/2 NS 1000ml IV ONE (12:59)
--- NOTE | 2016-11-24 08:30 | Discharge Summary ---
DATE OF ADMISSION: 11/20/2016 DATE OF DISCHARGE: 11/23/2016 CHIEF COMPLAINT: Abdominal pain. HISTORY OF PRESENT ILLNESS: This is a 76-year-old female with history of diabetes, who was admitted with abdominal pain. The patient had a CT scan of the abdomen in the emergency room, which showed diverticulitis. HOSPITAL COURSE: The patient was started on IV antibiotics for diagnosis of diverticulitis. Her symptoms quickly improved. She was initially on full liquid diet. The diet was changed to a diabetic diet. She tolerated the food and eventually she was discharged home with a plan to continue oral antibiotics for another seven days. DISCHARGE MEDICATIONS: The patient was supposed to go home on Flagyl 500 mg three times a day as well as Levaquin 750 mg daily for another week. FOLLOWUP: The patient was asked to come to my office within a week for followup. DISCHARGE DIAGNOSES: 1. Acute diverticulitis. 2. History of diabetes. Vito Ramirez M.D. DR: PRASHANT JOB#: [id number] CC:
== END 2016-11-23 13:00 | disposition home or self-care (01) | DRG 392 ==
LOC: EMR 11:30 → 4E 12:46 → EDBEDREQ 13:51
DX: K57.32 Diverticulitis of large intestine without perforation or abscess without bleeding (principal); E11.9 Type 2 diabetes mellitus without complications; D64.9 Anemia, unspecified; I10 Essential (primary) hypertension; D50.9 Iron deficiency anemia, unspecified; Z88.0 Allergy status to penicillin
CPT/HCPCS: 36415; 74177; 80053; 80061; 81003; 82378; 83036; 83540; 83550; 83690; 85025; 99285; J8499

== ENCOUNTER 2016-12-02 11:52 | Emergency (ER) | payer MEDICARE, MEDICAID ==
[~2016-12-02] VITALS: Ht 157.5 cm; Wt 59.0 kg
[~2016-12-02 11:52] MED LIST changes: +LEVAQUIN500 MG ORAL; +METRONIDAZOLE500 MG ORAL
--- NOTE | 2016-12-02 12:44 | Emergency Room Report ---
History of Present Illness General Chief Complaint: Pain Present Illness HPI 76-year-old female presents to the emergency department complaining of 10 out of 10 in severity progressive pain on the right side of the low back x2 days. Patient reports pain is exacerbated upon walking and bending over. Patient states she is a history of osteoporosis she has had several episodes of low back pain in the past denies night sweats, changes in weight, history of cancer or recent spinal procedures. reports pain radiates down into the right buttock. Patient denies fevers or chills, abdominal pain, rash, dysuria, frequency, and midline back pain, neck pain/stiffness or headache. Denies recent travel or ill contacts. Denies trauma or fall. Denies numbness tingling or loss of sensation or gross motor movements of the extremities, incontinence of bowel or bladder. Denies CP, Palpitations, LOC, AMS, dizziness, Changes in Vision, Sensation, paresthesias, or a sudden severe headache. Allergies: Coded Allergies: PENICILLINS (Verified Allergy, Unknown, 04/25/16) Patient History Past Medical History: see triage record, DM Past Surgical History: none Pertinent Family History: none Now: No Immunizations: UTD Reviewed Nursing Documentation: PMH: Agreed, PSxH: Agreed Nursing Documentation-PMH Hx Cardiac Problems: Yes Hx Hypertension: Yes Hx Diabetes: Yes Hx Cancer: No Hx Gastrointestinal Problems: No Hx Neurological Problems: No Review of Systems All Other Systems: negative except mentioned in HPI Physical Exam Vital Signs Date Time Temp Pulse Resp B/P (MAP) Pulse Ox O2 Delivery O2 Flow Rate FiO2 12/02/16 12:26 99.3 77 20 110/56 99 Room Air Sp02 EP Interpretation: reviewed, normal General Appearance: no apparent distress, alert, GCS 15, non-toxic Head: normocephalic, atraumatic Eyes: bilateral eye normal inspection, bilateral eye PERRL ENT: hearing grossly normal, normal voice Neck: full range of motion Respiratory: lungs clear, normal breath sounds, speaking full sentences Cardiovascular #1: regular rate, rhythm, normal capillary refill Gastrointestinal: normal bowel sounds, non tender, soft, no guarding, no rebound Rectal: deferred Genitourinary: normal inspection, no CVA tenderness Musculoskeletal: back normal, gait/station normal, normal range of motion, tender - right lumbar paraspinal ttp, no midline ttp, FROM , no obvious deformities, no erythema, no bruising. Neurologic: alert, oriented x3, responsive, motor strength/tone normal, sensory intact, speech normal Skin: normal color, no rash, warm/dry, well hydrated Medical Decision Making PA Attestation Dr. Urena is my supervising Physician whom patient management has been discussed with. Diagnostic Impression: Primary Impression: Back pain Qualified Codes: M54.41 - Lumbago with sciatica, right side ER Course 76-year-old female presents to the emergency department complaining of 10 out of 10 in severity progressive pain on the right side of the low back x2 days. Patient reports pain is exacerbated upon walking and bending over. Patient states she is a history of osteoporosis she has had several episodes of low back pain in the past denies night sweats, changes in weight, history of cancer or recent spinal procedures. reports pain radiates down into the right buttock. Patient denies fevers or chills, abdominal pain, rash, dysuria, frequency, and midline back pain, neck pain/stiffness or headache. Denies recent travel or ill contacts. Denies trauma or fall. Denies numbness tingling or loss of sensation or gross motor movements of the extremities, incontinence of bowel or bladder. Denies CP, Palpitations, LOC, AMS, dizziness, Changes in Vision, Sensation, paresthesias, or a sudden severe headache. Ddx considered but are not limited to Fracture, dislocation, contusion, epidural abscess, Sprain/Strain/Spasm Vital signs: are WNL, pt. is afebrile H&PE are most consistent with low back pain not in presence of trauma or RF for neoplasm/ abscess sciatica ORDERS: X-ray not required at this time, no spinous process tenderness ED INTERVENTIONS: - Tylenol #3 PO Re-Evaluation: pt. states her pain has subsided with ED interventions DISCHARGE: At this time pt. is stable for d/c to home. Will provide printed patient care instructions, and any necessary prescriptions. Care plan and follow up instructions have been discussed with the patient prior to discharge. Last Vital Signs Date Time Temp Pulse Resp B/P (MAP) Pulse Ox O2 Delivery O2 Flow Rate FiO2 12/02/16 12:26 99.3 77 20 110/56 99 Room Air Disposition: HOME, SELF-CARE Condition: Stable Scripts Cyclobenzaprine Hcl* (FLEXERIL*) 10 Mg Tablet 10 MG ORAL THREE TIMES A DAY for 7 Days, #21 TAB Prov: Shanita Gamez 12/02/16 Acetaminophen* (TYLENOL EXTRA STRENGTH*) 500 Mg Tablet 500 MG ORAL Q6H, #20 TAB 0 Refills Prov: Shanita Gamez 12/02/16 Patient Instructions: Back Pain, Adult Additional Instructions: Take medications as directed. Follow up with a Primary Care Provider in 3-5 days, even if your symptoms have resolved. --Please review list of primary care clinics, if you do not already have a primary care provider Return sooner to ED if new symptoms occur, or current symptoms become worse. Do not drink alcohol, drive, or operate heavy machinery while taking muscle relaxers as this may cause drowsiness. - Please note that this Emergency Department Report was dictated using [employer] maker technology software, occasionally this can lead to erroneous entry secondary to interpretation by the dictation equipment. Shanita Gamez Dec 02, 2016 12:44
[2016-12-02] MEDS ORDERED: Tylenol #3 tab (300mg/30mg) ORAL ONE (12:45)
[2016-12-02] MEDS ORDERED: CYCLOBENZAPRINE10 MG ORAL (12:51)
[2016-12-02] MEDS ORDERED: TYLENOL EXTRA500 MG ORAL (12:51)
[2016-12-02 13:15] VITALS: BP 120/76
== END 2016-12-02 13:15 | disposition home or self-care (01) ==
LOC: EMR 13:00
DX: M54.41 Lumbago with sciatica, right side (principal); I10 Essential (primary) hypertension; E11.9 Type 2 diabetes mellitus without complications
CPT/HCPCS: 99283